=== PATIENT | female | born 1940 | race Caucasian/White ===

== ENCOUNTER 2016-08-28 09:56 | Inpatient (IN) | payer MEDICARE, OTHER ==
[2016-08-28] MEDS ORDERED: NORMAL SALINE 1000 ML 1,000 ML IV PRN (10:21)
[2016-08-28] MEDS ORDERED: HYDROMORPHONE HCL INJ/PF 2 MG/ML AMPULE IV ONE ×2 (10:31→13:31)
--- NOTE | 2016-08-28 10:45 | ER Document Report ---
ED General - General Chief Complaint: Neck and Upper Back Pain Stated Complaint: BACK PAIN Mode of Arrival: Medic Information source: Patient Notes: 75-year-old female history of esophageal cancer which was recently evaluated with biopsies and noted to have been in remission presents with complaints of neck pain. Patient states in fact that his generalized body pain, she notes that she was diagnosed with a compression fracture just yesterday in the lumbar region. pt notes the pain is not ocntrolled with her oxycodone. pt denies any fevers or chills, denies any difficutly ambulating. pt notes it hurts to move because of her back but is able ot move her legs iwth no neuro deficits TRAVEL OUTSIDE OF THE [place] IN LAST 30 DAYS: No - HPI Onset: Other - 2 week duration Onset/Duration: Persistent Quality of pain: Achy Severity: Mild Pain Level: 2 Associated symptoms: Other Exacerbated by: Movement Relieved by: Denies Similar symptoms previously: Yes Recently seen / treated by doctor: Yes - pt notes she has seen multiple physicians regarding her back pain - Related Data Allergies/Adverse Reactions: Penicillins Allergy (Unknown, Verified 08/29/14 06:00) Past Medical History - Social History Smoking Status: Never Smoker Cigarette use (# per day): No Chew tobacco use (# tins/day): No Smoking Education Provided: No Family History: Reviewed & Not Pertinent - Past Medical History Cardiac Medical History: Reports: Hx Hypercholesterolemia, Hx Hypertension Denies: Hx Coronary Artery Disease Pulmonary Medical History: Denies: Hx Asthma Endocrine Medical History: Reports: Hx Hypothyroidism. 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 Denies recent illness. EENT: Denies eye, ear, throat, or mouth pain or symptoms. Denies nasal or sinus congestion or discharge. Denies throat, tongue, or mouth swelling or difficulty swallowing. CARDIOVASCULAR: Denies chest pain. Denies palpitations or racing or irregular heart beat. Denies ankle edema. RESPIRATORY: Denies cough, cold, or chest congestion. Denies shortness of breath, difficulty breathing, or wheezing. GASTROINTESTINAL: Denies abdominal pain or distention. Denies nausea, vomiting , or diarrhea. Denies blood in vomitus, stools, or per rectum. Denies black, tarry stools. Denies constipation. admits ot decreased food due to recent biopsy but drinking fluids with no difficulty GENITOURINARY: Denies difficulty urinating, painful urination, burning, frequency, blood in urine, or discharge. FEMALE GENITOURINARY: Denies vaginal bleeding, heavy or abnormal periods, irregular periods. Denies vaginal discharge or odor. MUSCULOSKELETAL: admits ot neck stiffness since yesterday after moving wrong, admits ot low back pain of 2-3 week duration SKIN: Denies rash, lesions or sores. HEMATOLOGIC : Denies easy bruising or bleeding. LYMPHATIC: Denies swollen, enlarged glands. NEUROLOGICAL: Denies confusion or altered mental status. Denies passing out or loss of consciousness. Denies dizziness or lightheadedness. Denies headache. Denies weakness or paralysis or loss of use of either side. Denies problems with gait or speech. Denies sensory loss, numbness, or tingling. Denies seizures. PSYCHIATRIC: Denies anxiety or stress. Denies depression, suicidal ideation, or homicidal ideation. ALL OTHER SYSTEMS REVIEWED AND NEGATIVE. Dictation was performed using [employer] voice recognition software PHYSICAL EXAMINATION: GENERAL: Well-appearing, well-nourished and in no acute distress. HEAD: Atraumatic, normocephalic. EYES: Pupils equal round and reactive to light, extraocular movements intact, conjunctiva are normal. ENT: Nares patent, oropharynx clear without exudates. Moist mucous membranes. NECK: Normal range of motion, supple without lymphadenopathy LUNGS: Breath sounds clear to auscultation bilaterally and equal. No wheezes rales or rhonchi. HEART: Regular rate and rhythm without murmurs ABDOMEN: Soft, nontender, nondistended abdomen. No guarding, no rebound. No masses appreciated. Female : deferred Musculoskeletal: Normal range of motion, no pitting or edema. No cyanosis. NEUROLOGICAL: Cranial nerves grossly intact. Normal speech, normal gait. Normal sensory, motor exams PSYCH: Normal mood, normal affect. SKIN: Warm, Dry, normal turgor, no rashes or lesions noted. Physical Exam - Vital signs Vitals: Temp Pulse Resp BP Pulse Ox 99.3 F 96 20 137/66 H 96 02/03/17 10:05 08/28/16 10:05 08/28/16 10:05 08/28/16 10:05 08/28/16 10:05 Course - Re-evaluation Re-evalutation: 08/28/16 10:45 Patient will be given pain control sent for CT of the neck as well as laboratory I have very low suspicion for any life-threatening issues, I believe the patient's symptoms may be secondary to pain control as this is her main concern 08/28/16 10:48 08/28/16 10:49 MRI notes L1 superior endplate compression , no spinal cord involvment there is a consult for kyphoplasty 08/28/16 14:59 pt given 2 doses of dilaudid valium and patient is still unable to ambulate secondary to pain i will admit for her pain control and decreased po intake - Vital Signs Vital signs: Temp Pulse Resp BP Pulse Ox 98.5 F 82 18 132/75 H 95 08/28/16 13:25 08/28/16 13:25 08/28/16 13:25 08/28/16 13:25 08/28/16 13:25 - Laboratory Result Diagrams: 08/28/16 10:43 08/28/16 10:43 Laboratory results interpreted by me: 08/28/16 08/28/16 08/28/16 10:43 10:43 14:22 Seg Neutrophils % 81.7 H Lymphocytes % 5.7 L Absolute Lymphocytes 0.3 L Sodium 136.5 L Est GFR (Non-Af Amer) 59 L Urine Ketones 20 H Ur Leukocyte Esterase MODERATE H - Diagnostic Test Radiology reviewed: Image reviewed, Reports reviewed Discharge - Discharge Clinical Impression: Weakness Compression fracture of first lumbar vertebra Qualifiers: Encounter type: initial encounter Fracture type: closed Qualified Code(s): S32.010A - Wedge compression fracture of first lumbar vertebra, initial encounter for closed fracture Condition: Stable Disposition: ADMITTED OBSERVATION Admitting Provider: Hospitalist Unit Admitted: Medical Floor
[2016-08-28 11:09] LABS: ABSOLUTE EOSINOPHILS # (AUTO) 0.1 10^3/uL (0.0-0.6); ABSOLUTE LYMPHOCYTES (AUTO) 0.3 10^3/uL (0.5-4.7); ABSOLUTE MONOCYTES (AUTO) 0.7 10^3/uL (0.1-1.4); BASOPHILS % (AUTO) 0.6 % (0-2); EOSINOPHILS % (AUTO) 1.4 % (0-6); HEMATOCRIT 38.5 % (36.0-47.0); HEMOGLOBIN 13.1 g/dL (12.0-15.5); HGB HCT DIFFERENCE 0.8; LYMPHOCYTES % (AUTO) 5.7 % (13-45); MEAN CORPUSCULAR HEMOGLOBIN 32.2 pg (27.0-33.4); MEAN CORPUSCULAR HGB CONC 34.1 g/dL (32.0-36.0); MEAN CORPUSCULAR VOLUME 95 fl (80-97); MONOCYTES % (AUTO) 10.6 % (3-13); RED BLOOD COUNT 4.08 10^6/uL (3.72-5.28); RED CELL DISTRIBUTION WIDTH 13.9 % (11.5-14.0); SEGMENTED NEUTROPHILS % (AUTO) 81.7 % (42-78); WHITE BLOOD COUNT 6.2 10^3/uL (4.0-10.5)
[2016-08-28 11:22] LABS: PROTHROMBIN TIME 14.8 SEC (11.4-15.4)
[2016-08-28 11:26] LABS: ALANINE AMINOTRANSFERASE 24 U/L (9-52); ALBUMIN 3.7 g/dL (3.5-5.0); ALKALINE PHOSPHATASE 118 U/L (38-126); ANION GAP 13 (5-19); ASPARTATE AMINO TRANSFERASE 21 U/L (14-36); BILIRUBIN,TOTAL 1.2 mg/dL (0.2-1.3); BLOOD UREA NITROGEN 19 mg/dL (7-20); CALCIUM 9.3 mg/dL (8.4-10.2); CARBON DIOXIDE 26 mmol/L (22-30); CHLORIDE 98 mmol/L (98-107); CREATININE RESULT 0.92 mg/dL (0.52-1.25); GLUCOSE 88 mg/dL (75-110); POTASSIUM 4.4 mmol/L (3.6-5.0); SODIUM 136.5 mmol/L (137-145); TOTAL PROTEIN 7.1 g/dL (6.3-8.2)
[2016-08-28] MEDS ORDERED: DIAZEPAM INJ 10 MG/2 ML DISP.SYRIN IV ONE (13:31)
[2016-08-28 14:51] LABS: APPEARANCE,URINE CLEAR; BILIRUBIN,URINE NEGATIVE (NEGATIVE); GLUCOSE, URINE NEGATIVE (NEGATIVE); KETONES,URINE 20 mg/dL (NEGATIVE); LEUKOCYTE ESTERASE,URINE MODERATE (NEGATIVE); NITRITE,URINE NEGATIVE (NEGATIVE); PROTEIN,URINE NEGATIVE (NEGATIVE); URINE SPECIFIC GRAVITY 1.011; UROBILINOGEN,URINE NEGATIVE mg/dL (<2.0)
--- NOTE | 2016-08-28 16:04 | EKG REPORT ---
SEVERITY:- BORDERLINE ECG - SINUS RHYTHM PROBABLE LEFT ATRIAL ABNORMALITY : Confirmed by: Shant Allen 28-Aug-2016 16:03:29
--- NOTE | 2016-08-28 17:04 | PDOC H&P ---
History of Present Illness Admission Date/PCP: 08/28/16 16:16 History of Present Illness: MAGDIEL HENDRICKS is a 75 year old female history of esophageal cancer which was recently evaluated with biopsies and noted to have been in remission presents with complaints of neck pain. Patient states in fact that his generalized body pain, she notes that she was diagnosed with a compression fracture just yesterday in the lumbar region. pt notes the pain is not controlled with her oxycodone. pt denies any fevers or chills, denies any difficutly ambulating. pt notes it hurts to move because of her back but is able to move her legs with no neuro deficits Patient states she initially injured her back in July while pulling on a [place] tree The pain was tolerable but became unbearable in the last 3 weeks Patient has been more or less bedridden for the past 3 weeks Today she could not ambulate An MRI of the LS spine done today in an outpatient facility showed a compression fracture of L1 Was sent by Dr. 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 Past Surgical History Past Surgical History: Reports: Other - Liver transplant Social History Smoking Status: Never Smoker Frequency of Alcohol Use: Social - Advance Directive Resuscitation Status: Do Not Resuscitate Surrogate healthcare decision maker:: Valentine Ann Family History Family History: None Parental Family History Reviewed: Yes Children Family History Reviewed: Yes Sibling(s) Family History Reviewed.: Yes Medication/Allergy Allergies/Adverse Reactions: Penicillins Allergy (Unknown, Verified 08/29/14 06:00) Review of Systems Constitutional: PRESENT: anorexia, weakness, weight loss. ABSENT: chills, fever (s), headache(s), weight gain Eyes: ABSENT: visual disturbances Ears: ABSENT: hearing changes Nose, Mouth, and Throat: PRESENT: mouth pain Cardiovascular: ABSENT: chest pain, dyspnea on exertion, edema, orthropnea, palpitations Respiratory: ABSENT: cough, hemoptysis Gastrointestinal: ABSENT: abdominal pain, constipation, diarrhea, hematemesis, hematochezia, nausea, vomiting Genitourinary: ABSENT: dysuria, hematuria Musculoskeletal: PRESENT: as per HPI, back pain, other - Severe pain in upper extremities shoulders and thighs Severe weakness of the larger joints. ABSENT: joint swelling Integumentary: ABSENT: rash, wounds Neurological: ABSENT: abnormal gait, abnormal speech, confusion, dizziness, focal weakness, syncope Psychiatric: ABSENT: anxiety, depression, homidical ideation, suicidal ideation Endocrine: ABSENT: cold intolerance, heat intolerance, polydipsia, polyuria Hematologic/Lymphatic: ABSENT: easy bleeding, easy bruising Physical Exam Vital Signs: Temp Pulse Resp BP Pulse Ox 98.5 F 82 18 132/75 H 95 08/28/16 13:25 08/28/16 13:25 08/28/16 13:25 08/28/16 13:25 08/28/16 13:25 General appearance: PRESENT: no acute distress - I, cooperative, thin, other - Appears chronically ill Head exam: PRESENT: atraumatic, normocephalic Eye exam: PRESENT: conjunctiva pink, EOMI, PERRLA. ABSENT: scleral icterus Respiratory exam: PRESENT: clear to auscultation rajni. ABSENT: rales, rhonchi, wheezes Cardiovascular exam: PRESENT: RRR. ABSENT: diastolic murmur, rubs, systolic murmur Pulses: PRESENT: normal dorsalis pedis pul GI/Abdominal exam: PRESENT: normal bowel sounds, soft. ABSENT: distended, guarding, mass, organolmegaly, rebound, tenderness Rectal exam: PRESENT: deferred Extremities exam: PRESENT: full ROM. ABSENT: calf tenderness, clubbing, pedal edema Musculoskeletal exam: PRESENT: normal inspection, other - Severe back pain Neurological exam: PRESENT: alert, awake, oriented to person, oriented to place , oriented to time, oriented to situation, CN II-XII grossly intact. ABSENT: motor sensory deficit Psychiatric exam: PRESENT: appropriate affect, normal mood. ABSENT: homicidal ideation, suicidal ideation Skin exam: PRESENT: dry, intact, warm. ABSENT: cyanosis, rash Results Laboratory Results: 08/28/16 10:43 08/28/16 10:43 MCV 95 fl (80-97) 08/28/16 10:43 MCH 32.2 pg (27.0-33.4) 08/28/16 10:43 MCHC 34.1 g/dL (32.0-36.0) 08/28/16 10:43 RDW 13.9 % (11.5-14.0) 08/28/16 10:43 Seg Neutrophils % 81.7 % (42-78) H 08/28/16 10:43 Lymphocytes % 5.7 % (13-45) L 08/28/16 10:43 Monocytes % 10.6 % (3-13) 08/28/16 10:43 Eosinophils % 1.4 % (0-6) 08/28/16 10:43 Basophils % 0.6 % (0-2) 08/28/16 10:43 Absolute Neutrophils 5.0 10^3/uL (1.7-8.2) 08/28/16 10:43 Absolute Lymphocytes 0.3 10^3/uL (0.5-4.7) L 08/28/16 10:43 Absolute Monocytes 0.7 10^3/uL (0.1-1.4) 08/28/16 10:43 Absolute Eosinophils 0.1 10^3/uL (0.0-0.6) 08/28/16 10:43 Absolute Basophils 0.0 10^3/uL (0.0-0.2) 08/28/16 10:43 Chloride 98 mmol/L (98-107) 08/28/16 10:43 Carbon Dioxide 26 mmol/L (22-30) 08/28/16 10:43 Anion Gap 13 (5-19) 08/28/16 10:43 Est GFR ( Amer) > 60 (>60) 08/28/16 10:43 Est GFR (Non-Af Amer) 59 (>60) L 08/28/16 10:43 Glucose 88 mg/dL (75-110) 08/28/16 10:43 Calcium 9.3 mg/dL (8.4-10.2) 08/28/16 10:43 Total Bilirubin 1.2 mg/dL (0.2-1.3) 08/28/16 10:43 AST 21 U/L (14-36) 08/28/16 10:43 ALT 24 U/L (9-52) 08/28/16 10:43 Alkaline Phosphatase 118 U/L (38-126) 08/28/16 10:43 Total Protein 7.1 g/dL (6.3-8.2) 08/28/16 10:43 Albumin 3.7 g/dL (3.5-5.0) 08/28/16 10:43 Urine Color YELLOW 08/28/16 14:22 Urine Appearance CLEAR 08/28/16 14:22 Urine pH 5.0 (5.0-9.0) 08/28/16 14:22 Ur Specific [place] 1.011 08/28/16 14:22 Urine Protein NEGATIVE mg/dL (NEGATIVE) 08/28/16 14:22 Urine Glucose (UA) NEGATIVE mg/dL (NEGATIVE) 08/28/16 14:22 Urine Ketones 20 mg/dL (NEGATIVE) H 08/28/16 14:22 Urine Blood NEGATIVE (NEGATIVE) 08/28/16 14:22 Urine Nitrite NEGATIVE (NEGATIVE) 08/28/16 14:22 Ur Leukocyte Esterase MODERATE (NEGATIVE) H 08/28/16 14:22 Urine WBC (Auto) 2 /HPF 08/28/16 14:22 Urine RBC (Auto) 1 /HPF 08/28/16 14:22 Impressions: Cervical Spine CT 08/28/16 10:40 IMPRESSION: Diffuse multilevel degenerative changes with multilevel foraminal narrowing Left-sided pleural effusions seen at the bottom edge of the field of view Assessment & Plan - Diagnosis (1) Unable to ambulate Is this a current diagnosis for this admission?: YesPlan: She will be evaluated by physical therapy in a.m. after optimization of medications (2) Intractable low back pain Is this a current diagnosis for this admission?: YesPlan: Secondary to compression fracture of L1 May be a candidate for vertebroplasty (3) Compression fracture of L1 lumbar vertebra Qualifiers: Encounter type: initial encounter Fracture type: closed Qualified Code(s): S32.010A - Wedge compression fracture of first lumbar vertebra, initial encounter for closed fracture Is this a current diagnosis for this admission?: YesPlan: MRI was performed in an outpatient facility Called Dr. Hamm ; Report of the MRI to be faxed (4) Weakness Is this a current diagnosis for this admission?: Yes - Time Time Spent with patient: Patient was admitted for observation overnight to medical floor Time Spent: 50 to 70 Minutes
[2016-08-28] MEDS: NORMAL SALINE 1000 ML 1,000 ML IV PRN (17:16)
[2016-08-28] MEDS: HYDROMORPHONE HCL INJ/PF 2 MG/ML AMPULE IV PRN ×2 (17:27→22:05)
[2016-08-29] MEDS: NORMAL SALINE 1000 ML 1,000 ML IV PRN (06:01)
[2016-08-29] MEDS: HYDROMORPHONE HCL INJ/PF 2 MG/ML AMPULE IV PRN ×4 (06:19→23:52)
[2016-08-29] MEDS: ENOXAPARIN SODIUM INJ 40 MG/0.4 ML DISP.SYRIN SUBCUT SCH (08:08)
--- NOTE | 2016-08-29 15:44 | PDOC PROGRESS REPORT ---
Subjective Progress Note for:: 08/29/16 Subjective:: Patient is still complaining of intractable pain in her back She is unable to sit She also complains of dysuria and urinary incontinence She's had constipation now for just 3-4 days Physical Exam Vital Signs: Temp Pulse Resp BP Pulse Ox 98.5 F 89 16 128/69 H 97 08/29/16 08:05 08/29/16 08:05 08/29/16 08:05 08/29/16 08:05 08/29/16 08:05 Intake & Output 08/28/16 08/29/16 08/30/16 00:59 00:59 00:59 Intake Total 200 1287 Balance 200 1287 Weight 57.4 kg 57.4 kg General appearance: PRESENT: mild distress Head exam: PRESENT: atraumatic, normocephalic Eye exam: PRESENT: conjunctiva pink, EOMI, PERRLA. ABSENT: scleral icterus Neck exam: ABSENT: carotid bruit, JVD, lymphadenopathy, thyromegaly Respiratory exam: PRESENT: clear to auscultation rajni. ABSENT: rales, rhonchi, wheezes Cardiovascular exam: PRESENT: bradycardia Pulses: PRESENT: normal dorsalis pedis pul GI/Abdominal exam: PRESENT: normal bowel sounds, soft, tenderness - Suprapubic area. ABSENT: distended, guarding, mass, organolmegaly, rebound Rectal exam: PRESENT: deferred Extremities exam: PRESENT: full ROM. ABSENT: calf tenderness, clubbing, pedal edema Neurological exam: PRESENT: alert, awake, oriented to person, oriented to place , oriented to time, oriented to situation, CN II-XII grossly intact. ABSENT: motor sensory deficit Results Laboratory Results: 08/28/16 14:22 Urine Appearance CLEAR Ur Leukocyte Esterase MODERATE H Urine WBC (Auto) 2 Urine RBC (Auto) 1 08/28/16 14:22 Urine Culture - Final Clean Catch Midstream Mixed Urogenital [place] Impressions: Cervical Spine CT 08/28/16 10:40 IMPRESSION: Diffuse multilevel degenerative changes with multilevel foraminal narrowing Left-sided pleural effusions seen at the bottom edge of the field of view Assessment & Plan - Diagnosis (1) Unable to ambulate Is this a current diagnosis for this admission?: YesPlan: pain is still intractable continue dilaudid iV attempt PT eval on wednesday (2) Intractable low back pain Is this a current diagnosis for this admission?: Yes (3) Compression fracture of L1 lumbar vertebra Qualifiers: Encounter type: initial encounter Fracture type: closed Qualified Code(s): S32.010A - Wedge compression fracture of first lumbar vertebra, initial encounter for closed fracture Is this a current diagnosis for this admission?: YesPlan: Patient may be a candidate for vertebroplasty will consult Dr Oneal on Wednesday (4) Weakness Is this a current diagnosis for this admission?: Yes (5) Dysuria Is this a current diagnosis for this admission?: YesPlan: culture urine was mixed [place] but patient is symptomatic will treat her with 3 days Cipro 500 mg bid and Pyridium 200 mg q8 - Time Time Spent with patient: 25-34 minutes
[2016-08-29] MEDS ORDERED: PHENAZOPYRIDINE HCL 200 MG TABLET PO SCH ×2 (16:00→22:00)
[2016-08-29] MEDS ORDERED: PHENAZOPYRIDINE HCL 100 MG TABLET PO ONE (16:30)
[2016-08-29] MEDS ORDERED: PHENAZOPYRIDINE HCL 200 MG TABLET PO ONE (16:30)
[2016-08-29] MEDS: SENNOSIDES/DOCUSATE 8.6-50 MG 1 EACH TABLET PO SCH (17:19)
[2016-08-29] MEDS ORDERED: CIPROFLOXACIN HCL 500 MG TABLET PO SCH (18:00)
[2016-08-29] MEDS ORDERED: DIAZEPAM 5 MG TABLET PO PRN (18:14)
[2016-08-29] MEDS ORDERED: ONDANSETRON HCL INJ/PF 4 MG/2 ML SDV IV PRN (18:14)
[2016-08-29] MEDS ORDERED: TACROLIMUS ANHYDROUS 1 MG CAPSULE PO SCH (22:00)
[2016-08-29] MEDS ORDERED: PHENAZOPYRIDINE HCL 100 MG TABLET PO SCH (22:00)
[2016-08-29] MEDS ORDERED: ACYCLOVIR SODIUM INJ/PF 500 MG/10 ML SDV IV ONE (22:04)
[2016-08-29] MEDS: ATORVASTATIN CALCIUM 10 MG TABLET PO SCH (22:53)
[2016-08-29] MEDS: LACTULOSE SYRUP 20 GM/30 ML UDCUP PO SCH (22:53)
[2016-08-29] MEDS: ACYCLOVIR SODIUM 500 MG in NORMAL SALINE 100 ML IV SCH (22:53)
[2016-08-29] MEDS: TACROLIMUS ANHYDROUS 1 MG CAPSULE PO SCH (22:55)
[2016-08-30] MEDS: ACYCLOVIR SODIUM 500 MG in NORMAL SALINE 100 ML IV SCH ×3 (05:18→23:05)
[2016-08-30] MEDS ORDERED: LEVOTHYROXINE SODIUM 0.1 MG TABLET PO SCH (06:00)
[2016-08-30 06:44] LABS: BLOOD UREA NITROGEN 15 mg/dL (7-20); CALCIUM 8.6 mg/dL (8.4-10.2); CARBON DIOXIDE 26 mmol/L (22-30); CREATININE RESULT 0.58 mg/dL (0.52-1.25); GLUCOSE 90 mg/dL (75-110); POTASSIUM 3.8 mmol/L (3.6-5.0); SODIUM 140.1 mmol/L (137-145)
[2016-08-30 07:07] LABS: ANION GAP 9 (5-19); CHLORIDE 105 mmol/L (98-107)
[2016-08-30] MEDS: ENOXAPARIN SODIUM INJ 40 MG/0.4 ML DISP.SYRIN SUBCUT SCH (08:50)
[2016-08-30] MEDS: HYDROMORPHONE HCL INJ/PF 2 MG/ML AMPULE IV PRN ×3 (09:01→21:51)
[2016-08-30] MEDS: LACTULOSE SYRUP 20 GM/30 ML UDCUP PO SCH (09:02)
[2016-08-30] MEDS: CIPROFLOXACIN 400 MG/D5W RTU 400 MG/200 ML RTUPB IV SCH ×2 (09:02→21:44)
[2016-08-30] MEDS: AMLODIPINE BESYLATE 5 MG TABLET PO SCH (09:03)
[2016-08-30] MEDS: SENNOSIDES/DOCUSATE 8.6-50 MG 1 EACH TABLET PO SCH (09:03)
[2016-08-30] MEDS: TACROLIMUS ANHYDROUS 1 MG CAPSULE PO SCH ×2 (09:04→22:43)
[2016-08-30] MEDS ORDERED: ERGOCALCIFEROL (VITAMIN D2) 50000 UNIT (1.25 MG) CAPSULE PO SCH ×2 (10:00→18:14)
[2016-08-30] MEDS ORDERED: ATORVASTATIN PO SCH (10:00)
[2016-08-30] MEDS ORDERED: AMLODIPINE PO SCH (10:00)
--- NOTE | 2016-08-30 15:13 | PDOC PROGRESS REPORT ---
Subjective Progress Note for:: 08/30/16 Subjective:: Patient is still in pain ; the pain is in the lower back and also the neck Patient is unable to sit to stand Yesterday she was in acute urinary retention and a Aleman catheter drained 900 mL urine Patient is being treated empirically for UTI as she had significant dysuria She is more comfortable today, still complaining of constipation The back pain is barely improved with intermittent doses of IV Dilaudid. Acyclovir IV was started as patient cannot tolerate large pills Patient had been diagnosed of herpetic esophagitis prior to admission and had been described prescribed acyclovir tablets Physical Exam Vital Signs: Temp Pulse Resp BP Pulse Ox 97.4 F 90 16 135/74 H 96 08/30/16 12:00 08/30/16 12:00 08/30/16 12:00 08/30/16 12:00 08/30/16 12:00 Intake & Output 08/29/16 08/30/16 08/31/16 00:59 00:59 00:59 Intake Total 200 2589 909 Output Total 300 Balance 200 2589 609 Weight 57.4 kg 59.5 kg General appearance: PRESENT: mild distress, thin, other - Looks acute and chronically ill Head exam: PRESENT: atraumatic, normocephalic Eye exam: PRESENT: conjunctiva pale, EOMI, PERRLA. ABSENT: scleral icterus Respiratory exam: PRESENT: clear to auscultation rajni. ABSENT: rales, rhonchi, wheezes Cardiovascular exam: PRESENT: RRR. ABSENT: diastolic murmur, rubs, systolic murmur Vascular exam: PRESENT: normal capillary refill GI/Abdominal exam: PRESENT: normal bowel sounds, soft. ABSENT: distended, guarding, mass, organolmegaly, rebound, tenderness Extremities exam: PRESENT: full ROM. ABSENT: calf tenderness, clubbing, pedal edema Musculoskeletal exam: PRESENT: other - Severe pain in the low back on palpation Neurological exam: PRESENT: alert, awake, oriented to person, oriented to place , oriented to time, oriented to situation, CN II-XII grossly intact. ABSENT: motor sensory deficit Results Laboratory Results: 08/30/16 05:41 08/30/16 05:41 Sodium 140.1 Potassium 3.8 Chloride 105 Carbon Dioxide 26 Anion Gap 9 BUN 15 Creatinine 0.58 Est GFR ( Amer) > 60 Est GFR (Non-Af Amer) > 60 Glucose 90 Calcium 8.6 08/28/16 14:22 Ur Leukocyte Esterase MODERATE H Urine WBC (Auto) 2 Urine RBC (Auto) 1 08/28/16 14:22 Urine Culture - Final Clean Catch Midstream Mixed Urogenital [place] 08/28/16 13:35 Blood Culture - Preliminary Blood NO GROWTH AFTER 48 HOURS 08/28/16 10:43 Blood Culture - Preliminary Blood NO GROWTH AFTER 48 HOURS Impressions: Cervical Spine CT 08/28/16 10:40 IMPRESSION: Diffuse multilevel degenerative changes with multilevel foraminal narrowing Left-sided pleural effusions seen at the bottom edge of the field of view Assessment & Plan - Diagnosis (1) Unable to ambulate Is this a current diagnosis for this admission?: YesPlan: Patient is unable to sit or stand on her own She was evaluated by physical therapy as below "Patient presents as agreeable to treatment, medicated prior to treatemnt with 2 /5 pain at rest, oriented x 3 with decrease in overall strength and endurance as well as decrease in functional transfer (patient instructed in safe log roll transfers) and gait abilities with patient ambulating 2 x 6 side steps with front wheeled walker and min/mod assist of 2 with frequent left knee buckling with verbal cues given to stand upright, to increase step height/length BLE, to push down onto walker with BUE and for safety awareness. Weight shifting and trunk strengthening exercises were performed in sitting with min/mod assist of 1. She was positioned supine post treatment with all needs at her side. All questions were answered. Will continue to follow for energy conservation technique education, strengthening exercises, transfer training and gait training activities to achieve the above mentioned goals to assist patient in returning to highest functional mobility status. Recommend SNF rehab or 24 hour supervision at home with home health PT upon D/C. " We do believe that vertebroplasty will improve her pain Patient is extremely weak; she certainly would benefit initiate from inpatient rehabilitation (2) Intractable low back pain Is this a current diagnosis for this admission?: YesPlan: Secondary to compression fracture of L1 Continue IV Dilaudid Patient will be evaluated by Dr. Bolton for vertebroplasty in a.m. (3) Compression fracture of L1 lumbar vertebra Qualifiers: Encounter type: initial encounter Fracture type: closed Qualified Code(s): S32.010A - Wedge compression fracture of first lumbar vertebra, initial encounter for closed fracture Is this a current diagnosis for this admission?: Yes (4) Weakness Is this a current diagnosis for this admission?: Yes (5) Dysuria Is this a current diagnosis for this admission?: Yes (6) Esophagitis Is this a current diagnosis for this admission?: YesPlan: Continue IV acyclovir (7) Urinary retention Is this a current diagnosis for this admission?: YesPlan: Urinary retention likely secondary to high-dose opiates given; secondary to constipation We will reevaluate in a few days after vertebroplasty (8) Constipation Qualifiers: Constipation type: unspecified constipation type Qualified Code(s): K59.00 - Constipation, unspecified Is this a current diagnosis for this admission?: YesPlan: Treat with Dulcolax tablets and Miralax - Time Time Spent with patient: 25-34 minutes
[2016-08-30] MEDS ORDERED: BISACODYL 5 MG TABEC PO ONE (16:00)
[2016-08-30] MEDS: POLYETHYLENE GLYCOL 3350 POWDER 17 GM/1 PACKET PO SCH (19:05)
[2016-08-30] MEDS: ATORVASTATIN CALCIUM 10 MG TABLET PO SCH (21:46)
[2016-08-31] MEDS: HYDROMORPHONE HCL INJ/PF 2 MG/ML AMPULE IV PRN ×6 (02:04→23:56)
--- NOTE | 2016-08-31 04:18 | CONSULTATION REPORT E ---
Consultation Report NAME: MAGDIEL HENDRICKS : 1940 AGE: 75Y DATE: 08/31/2016 433 A TO: CHERELLE MICHELLE FROM: Requesting Physician CHIEF COMPLAINT: Chronic back. HISTORY OF PRESENT ILLNESS: The patient is a 75-year-old female, who we were consulted to evaluated for chronic back pain. She does state that she does have some ongoing neck pain, but her back pain is significantly worse. She first noted the pain after the holiday, approximately 3-4 weeks ago, when she was taking down a Razia tree. She states she took off the first half of the Razia tree and when she went to take off the second half of the Razia tree, she had severe pain that shot across her back into her gluteus bilaterally. She did not think much of it at that point. The next morning, she said it was very difficult for her to move. She notes that she was able to get out of the bed, but had to go very, very slowly and had to hold onto various furniture in order to make it to the restroom to relieve herself that morning. Denied any loss of bowel/bladder control, numbness, paresthesias at that time. States that as the day went on, the pain had improved, but recently the pain has become significantly worse. Notes that she has been caring for her 80-year-old , who recently has had hip replacement and currently in inpatient rehabilitation. She states that he is about 190 pounds and she has been helping to try to transfer him, as well as pushing him in a wheelchair for certain modalities. I would also like to note, the patient has a history of esophageal cancer in which she reports she has undergone chemotherapy and radiation therapy. She states the last treatment was around March 2016. She continues to follow with Oncology. She also has recently had a biopsy as well. During the period of progression of her pain, she had been seen at [facility] twice, as well as by her primary care. Reports that after her second visit with her primary care and after 2 treatments of oral steroid therapy, MRI was ordered, in which she states she completed on 08/14/2016 at [facility]. She states she was also informed that she had a compression fracture of the L1 vertebra by Dr. Espinoza. She has not been treated for the compression fracture. She was seen in the emergency room and was subsequently transferred to the hospitalist for further workup. The patient states that her pain is the lowest when she is sitting still, usually lying in a reclined position. The pain is aggravated by any type of movement, whether it is moving her legs or attempting to sit up in the bed or rotate in the bed. Definitely much worse when trying to sit on the side of the bed, then trying to stand up. Notes that she has lost her balance a couple of times due to the increased pain when trying to stand. Management of pain has been with the use of oxycodone that she has had from previous treatment of her chemotherapy pain. Has not been prescribed any type of narcotic medication for the acute pain that she presents with today prior to admission. Did report that the oxycodone 5 mg 1-2 tablets was effective for helping to cut pain until it progressed to the point where it was very difficult for her to even stand straight. She has been evaluated by PCP in office. Once again, she denies any lower extremity radiculopathy, loss of bowel or bladder control otherwise. Current dosing of pain medication in hospital is inclusive of 5 mg of oxycodone immediate-release 1 tablet every 6 hours, as well as Dilaudid 1 mg every 4 hours as needed for pain. PAST MEDICAL HISTORY: Patient's past medical history is inclusive of: 1. Hyperlipidemia. 2. Hypertension. 3. Esophageal cancer, status post chemotherapy, radiation therapy. 4. 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 5. Denies any asthma or pulmonary complications. 6. Does admit to hypothyroidism, which is being managed with Synthroid. 7. Denies any type of diabetes mellitus type 1 or type 2. PAST SURGICAL HISTORY: Significant for liver transplant. SOCIAL HISTORY: The patient denies any history of smoking, admits to social alcohol consumption. She lives at home with her 80-year-old , who is currently in inpatient rehab. Currently is under DO NOT RESUSCITATE order as well. FAMILY HISTORY: Denies any significant contributory family history at this time. Reviewed family history to include children, siblings, as well as parental family history. MEDICATIONS: Please see medication list. MEDICATION ALLERGIES: The patient does verbalize allergy to PENICILLIN. REVIEW OF SYSTEMS: CONSTITUTIONAL: The patient does report weight loss, weakness. Denies any nausea, vomiting, fevers, chills, headaches at this time. EYES, EARS, NOSE, THROAT: Denies any changes in visual capacity, denies any difficulty with hearing or ringing of the ears at this point in time. Patient does complain of mouth pain and at times difficulty with swallowing large objects or large pills. CARDIOVASCULAR: Denies any chest pain, dyspnea, orthopnea, palpitations or swelling. RESPIRATORY: Denies any coughing, hemoptysis, shortness of breath, wheezing at this point. GASTROINTESTINAL: Does complain of constipation, but reports relief with current regimen of stool softeners and laxatives. GENITOURINARY: Does note that she did have some minor dysuria, but currently she is catheterized. Denies any pain, dysuria or hematuria at this point. MUSCULOSKELETAL: Complains of neck and back pain, with the back pain being severe. Denies any radiculopathy of the upper extremities, lower extremities bilaterally at this time. Does report she is having weakness in the lower extremities, difficulty with standing as well. Denies any joint swelling, changes or erythema. INTEGUMENTARY: Denies any rashes, lesions. NEUROLOGIC: Denies any loss of focus, dizziness, confusion, changes in her speech. ENDOCRINE: Denies any cold or heat intolerance, polydipsia or polyphagia. PSYCHIATRIC: Denies any homicidal or suicidal ideation, anxiety during exam today. PHYSICAL EXAMINATION: VITAL SIGNS: Temperature 97.4, pulse 90, respirations 16, blood pressure 135/74, pulse oximetry 96 on room air. GENERAL APPEARANCE: Patient is lying comfortably in bed, no acute distress noted at this time. Does note increase in pain with movement of lower extremities, as well as trying to readjust in the bed; otherwise, she is a fairly thin lady, alert and oriented, and seems to be overall comfortable. HEAD, EYES, EARS, NOSE, THROAT: The patient is normocephalic head with no apparent trauma with eyes being PERRLA, as well as bilateral equal motor movement appears to be intact. Nose appears to be patent bilaterally. Trachea in regards to the throat, appears to be midline. No JVD noted on exam. No thyromegaly or goiter noted on exam. RESPIRATORY: Lungs are clear to auscultation bilaterally. CARDIOVASCULAR: Heart shows regular rate and rhythm. No noted murmur, gallops or rubs with pulses appearing to be normal. Specifically, dorsalis pedis pulse is intact. ABDOMEN: Normal bowel sounds x4. Nontender, nondistended. No guarding noted on exam. NECK: There is some diffuse tenderness on palpation of the trapezius bilaterally. Noted trigger points of the trapezius muscles bilaterally as well. Full range of motion of the neck. No Spurling noted on exam. Mild tenderness to palpation of paravertebral muscles, as well as minor tenderness to palpation around C5, C6, and C7 regions. EXTREMITIES: Full range of motion of the upper extremities noted on exam. Minor tenderness to palpation of the musculature; specifically the biceps, triceps and deltoid regions. The patient states that the pain has significantly improved and seems more like soreness. Lower extremities, she has good strength; however, range of motion limited due to increased pain of the lower back with movement of the lower extremities. Straight leg raise negative; however, noted increased lumbar pain with flexion and extension of the hip and the lower extremity bilaterally. SPINE: Noted significant diffuse tenderness to palpation of the lumbar spine on exam. Noted greater tenderness to palpation around the T12, L1, L2, L3 regions with point tenderness specifically around the T12 to L1 region on exam. No joint deformities, swelling, erythema or ecchymoses noted at the site. The patient unable to stand up due to the increased back pain, does note difficulty with even rolling to lie on side during exam due to the increased back pain. Noted tenderness to palpation of the SI joints bilaterally. No tenderness of the lower extremities noted. NEUROLOGIC: Patient is alert and oriented x3. Cranial nerves grossly intact. Lower extremity reflexes of patella, Achilles reflexes are within normal limits. Strength of the lower extremities noted 4/5 bilaterally due to the increased pain of the lower back with excessive movement of the lower extremities. PSYCHIATRIC: Patient denies any suicidal or homicidal ideation. She has appropriate affect. Mood is normal. She is very cooperative, alert and no noted anxiety during exam today. RADIOLOGICAL STUDIES: The patient has had a CT scan completed on August 28, which revealed diffuse multilevel degenerative changes with multilevel foraminal narrowing with the left pleural effusion seen at the bottom edge of the field of view. ASSESSMENT/PLAN: 1. LOW BACK PAIN SECONDARY TO REPORTED L1 COMPRESSION FRACTURE. At this point we are awaiting the MRI report and imaging for further workup and review. Consideration for possible kyphoplasty/vertebroplasty of the reported L1 compression fracture to be given once we have the report and imaging to review. May give consideration for further imaging to include possible bone scan or CT to confirm findings. As this point we will continue with current treatment plan. Patient is reporting relief with current regimen; however, may need to give consideration to increasing her oxycodone to 10 mg every 6 hours if the pain progresses or becomes worse. If noted continued issue with swallowing due to recent treatment for esophageal cancer, may consider adjustment of the Dilaudid instead to provide 2 mg every 4 hours as needed for pain. We will consider adjustment upon review or if reported worsening of pain prior to next visit. Continue to monitor constipation, especially in the presence of opioid medications. Of note, patient has been evaluated by PCP. I do believe that based on the information I have, she may benefit from vertebroplasty, but as I stated before we will work up and address if necessary. Of note, the patient is on Lovenox. We will need to probably obtain appropriate laboratory testing prior to consideration for vertebroplasty. Of note, the patient is also being treated for recent UTI as well. 2. NECK PAIN. Review of CT report. The patient currently denies any type of neurological deficit. Did not see any on exam at this time. A lot of the pain also seems to be more myofascial in presentation. Patient is reporting that the pain is improving and declines need for further workup, so we will continue to monitor for now. In the future if pain becomes radicular or worsening, may need to give consideration to cervical epidural injection versus cervical medial branch nerve blocks at that time. Also encouraged patient to continue with further workup and direction of hospitalist for management of UTI and other comorbid conditions. Thank you for the opportunity to serve in this patient's care. Please feel free to contact our office with any questions, concerns or worsening of pain. DICTATING PHYSICIAN: CHERELLE MICHELLE [id number] PHY#: [id number] ID: [id number] JOB#: [id number] ACCT: [id number] cc:CHERELLE MICHELLE > [facility]
[2016-08-31] MEDS: ACYCLOVIR SODIUM 500 MG in NORMAL SALINE 100 ML IV SCH ×3 (06:02→22:28)
[2016-08-31] MEDS: ENOXAPARIN SODIUM INJ 40 MG/0.4 ML DISP.SYRIN SUBCUT SCH (08:04)
[2016-08-31] MEDS: BISACODYL 5 MG TABEC PO SCH ×2 (09:24→17:34)
[2016-08-31] MEDS: AMLODIPINE BESYLATE 5 MG TABLET PO SCH (09:25)
[2016-08-31] MEDS: TACROLIMUS ANHYDROUS 1 MG CAPSULE PO SCH ×3 (09:25→22:38)
[2016-08-31] MEDS: CIPROFLOXACIN 400 MG/D5W RTU 400 MG/200 ML RTUPB IV SCH ×2 (09:26→22:30)
[2016-08-31] MEDS: POLYETHYLENE GLYCOL 3350 POWDER 17 GM/1 PACKET PO SCH ×2 (09:33→17:34)
--- NOTE | 2016-08-31 20:41 | PDOC PROGRESS REPORT ---
Subjective Progress Note for:: 08/31/16 Subjective:: Patient is still in pain ; the pain is in the lower back and also the neck In general patient appears more comfortable; no fever no chills Still constipated She is a lot more comfortable since she had the Aleman catheter inserted Physical Exam Vital Signs: Temp Pulse Resp BP Pulse Ox 97.7 F 96 16 100/63 96 08/31/16 16:00 08/31/16 16:00 08/31/16 16:00 08/31/16 16:00 08/31/16 16:00 Intake & Output 08/30/16 08/31/16 09/01/16 00:59 00:59 00:59 Intake Total 1028 1737 Output Total 225 1700 Balance 803 37 Weight 60.3 kg General appearance: PRESENT: mild distress, thin Head exam: PRESENT: atraumatic, normocephalic Eye exam: PRESENT: conjunctiva pink, EOMI, PERRLA. ABSENT: scleral icterus Ear exam: PRESENT: normal external ear exam Mouth exam: PRESENT: moist, tongue midline Neck exam: ABSENT: carotid bruit, JVD, lymphadenopathy, thyromegaly Respiratory exam: PRESENT: clear to auscultation rajni. ABSENT: rales, rhonchi, wheezes Cardiovascular exam: PRESENT: RRR. ABSENT: diastolic murmur, rubs, systolic murmur Pulses: PRESENT: normal dorsalis pedis pul Vascular exam: PRESENT: normal capillary refill GI/Abdominal exam: PRESENT: normal bowel sounds, soft. ABSENT: distended, guarding, mass, organolmegaly, rebound, tenderness Rectal exam: PRESENT: deferred Extremities exam: PRESENT: full ROM. ABSENT: calf tenderness, clubbing, pedal edema Musculoskeletal exam: PRESENT: tenderness - Of low back Neurological exam: PRESENT: alert, awake, oriented to person, oriented to place , oriented to time, oriented to situation, CN II-XII grossly intact. ABSENT: motor sensory deficit Psychiatric exam: PRESENT: appropriate affect, normal mood. ABSENT: homicidal ideation, suicidal ideation Skin exam: PRESENT: dry, intact, warm. ABSENT: cyanosis, rash Results Impressions: Cervical Spine CT 08/28/16 10:40 IMPRESSION: Diffuse multilevel degenerative changes with multilevel foraminal narrowing Left-sided pleural effusions seen at the bottom edge of the field of view Assessment & Plan - Diagnosis (1) Unable to ambulate Is this a current diagnosis for this admission?: YesPlan: patient is extremely debilitated Physical therapy evaluation requested Patient may be beneficial from inpatient short-term rehabilitation (2) Intractable low back pain Is this a current diagnosis for this admission?: Yes (3) Compression fracture of L1 lumbar vertebra Qualifiers: Encounter type: initial encounter Fracture type: closed Qualified Code(s): S32.010A - Wedge compression fracture of first lumbar vertebra, initial encounter for closed fracture Is this a current diagnosis for this admission?: YesPlan: Patient is will be evaluated by Dr. Bolton and Dr. Daniels for vertebroplasty (4) Esophagitis Is this a current diagnosis for this admission?: Yes (5) Weakness Is this a current diagnosis for this admission?: YesPlan: Severe weakness and poor nutrition We will have the dietitian consult and advise (6) Urinary retention Is this a current diagnosis for this admission?: YesPlan: We will leave the Aleman catheter to drain until patient is discharged Urinary retention likely secondary to severe pain, opiates and constipation, (7) Constipation Qualifiers: Constipation type: unspecified constipation type Qualified Code(s): K59.00 - Constipation, unspecified Is this a current diagnosis for this admission?: Yes - Time Time Spent with patient: 25-34 minutes
[2016-08-31] MEDS: ATORVASTATIN CALCIUM 10 MG TABLET PO SCH (22:30)
[2016-09-01] MEDS: ACYCLOVIR SODIUM 500 MG in NORMAL SALINE 100 ML IV SCH ×3 (05:28→21:42)
[2016-09-01] MEDS: HYDROMORPHONE HCL INJ/PF 2 MG/ML AMPULE IV PRN ×5 (05:29→21:42)
[2016-09-01] MEDS: CIPROFLOXACIN 400 MG/D5W RTU 400 MG/200 ML RTUPB IV SCH (09:47)
[2016-09-01] MEDS: ENOXAPARIN SODIUM INJ 40 MG/0.4 ML DISP.SYRIN SUBCUT SCH (09:48)
[2016-09-01] MEDS: AMLODIPINE BESYLATE 5 MG TABLET PO SCH (09:48)
[2016-09-01] MEDS: BISACODYL 5 MG TABEC PO SCH ×2 (09:50→18:43)
[2016-09-01] MEDS: POLYETHYLENE GLYCOL 3350 POWDER 17 GM/1 PACKET PO SCH ×2 (09:50→17:32)
--- NOTE | 2016-09-01 12:28 | PDOC CONSULTATION ---
History of Present Illness Admission Date/PCP: 08/30/16 17:25 History of Present Illness: MAGDIEL HENDRICKS is a 75 year old female Was sent to the hospital on 08/28/16 due to difficulty with ambulation and intractable back pain. Patient states she is having back pain since the holidays. She first noticed it when she was taking down her Razia tree and lifting something heavy at that point she felt a pain in her back. Since then she has been having pain in her back with radiating pain down her lower extremities. Denies fall. Prior to her admission she had been constipated with urinary retention but the constipation has improved. Patient denies saddle anesthesias. Also notices weakness of her bilateral upper extremities which is also somewhat of a new development. Patient denies headache dizziness or loss of consciousness. Pain is 10/10 when she attempts motion specifically of her left leg. An MRI of the LS spine done 08/14/16 in an outpatient facility showed a compression fracture of L1 Past Medical History Cardiac Medical History: Reports: Hyperlipidema, Hypertension Denies: Coronary Artery Disease Pulmonary Medical History: Denies: Asthma Endocrine Medical History: Reports: Hypothyroidism Denies: Diabetes Mellitus Type 1, Diabetes Mellitus Type 2 Malignancy Medical History: Reports: Other - CA of the esophagus status post chemotherapy and radiation therapy GI Medical History: Reports: Cirrhosis - HX OF PRIMARY BILIARY CIRRHOSIS WHICH RESULTED IN LIVER TRANSPLANT Past Surgical History Past Surgical History: Reports: Other - Liver transplant Social History Smoking Status: Former Smoker Frequency of Alcohol Use: Social Hx Recreational Drug Use: No Drugs: None Hx Prescription Drug Abuse: No - Advance Directive Resuscitation Status: Do Not Resuscitate Family History Family History: None Parental Family History Reviewed: No Children Family History Reviewed: No Sibling(s) Family History Reviewed.: No Medication/Allergy Home Medications: Amlodipine/Atorvastatin [Amlodipine-Atorvast 5-10 mg] 1 each PO DAILY 08/28/16 Diazepam [Valium 5 mg Tablet] 5 mg PO HSP PRN 08/28/16 Ergocalciferol (Vitamin D2) [Vitamin D2] 50,000 unit PO VO 08/28/16 Levothyroxine Sodium [Synthroid 0.1 mg Tablet] 0.1 mg PO DAILY 08/28/16 Oxycodone HCl [Oxy-Ir 5 mg Tablet] 5 mg PO Q6HP PRN 08/28/16 Tacrolimus [Prograf] 1 mg PO Q12 08/28/16 Allergies/Adverse Reactions: Penicillins Allergy (Unknown, Verified 08/29/14 06:00) Review of Systems Constitutional: PRESENT: weakness. ABSENT: chills, fever(s), headache(s), weight gain, weight loss Eyes: ABSENT: visual disturbances Ears: ABSENT: hearing changes Cardiovascular: ABSENT: chest pain, dyspnea on exertion, edema, orthropnea, palpitations Respiratory: ABSENT: cough, hemoptysis Gastrointestinal: PRESENT: constipation, heartburn. ABSENT: abdominal pain, diarrhea, hematemesis, hematochezia, nausea, vomiting Genitourinary: PRESENT: difficulty urinating. ABSENT: dysuria, hematuria Musculoskeletal: PRESENT: as per HPI Integumentary: ABSENT: rash, wounds Neurological: PRESENT: abnormal gait, paresthesias, weakness. ABSENT: abnormal speech, confusion, dizziness, syncope Psychiatric: ABSENT: anxiety, depression, homidical ideation, suicidal ideation Endocrine: ABSENT: cold intolerance, heat intolerance, menstrual abnormalities, polydipsia, polyuria Hematologic/Lymphatic: ABSENT: easy bleeding, easy bruising, lymphadenopathy Physical Exam Vital Signs: Temp Pulse Resp BP Pulse Ox 97.9 F 99 16 130/63 H 94 09/01/16 08:14 09/01/16 08:14 09/01/16 08:14 09/01/16 08:14 09/01/16 08:14 Intake & Output 08/31/16 09/01/16 09/02/16 06:59 06:59 06:59 Intake Total 2165 1600 Output Total 1525 800 Balance 640 800 Weight 60.3 kg 60 kg General appearance: PRESENT: no acute distress, well-developed, well-nourished Head exam: PRESENT: atraumatic, normocephalic Eye exam: PRESENT: conjunctiva pink, EOMI, PERRLA. ABSENT: scleral icterus Ear exam: PRESENT: normal external ear exam Mouth exam: PRESENT: moist, tongue midline Neck exam: PRESENT: full ROM. ABSENT: carotid bruit, JVD, lymphadenopathy, thyromegaly Respiratory exam: PRESENT: unlabored Cardiovascular exam: PRESENT: RRR. ABSENT: diastolic murmur, rubs, systolic murmur Pulses: PRESENT: normal dorsalis pedis pul, +2 pedal pulses bilateral Vascular exam: PRESENT: normal capillary refill GI/Abdominal exam: PRESENT: normal bowel sounds, soft. ABSENT: distended, guarding, mass, organolmegaly, rebound, tenderness Rectal exam: PRESENT: deferred Musculoskeletal exam: PRESENT: other - Lumbar spine: Tenderness palpation along the L1 vertebrae. Positive straight leg raise on the left negative straight leg raise on the right. Normal upgoing Babinski's. No sensory deficits. Plantar flexion/dorsiflexion/EHL 5/5. Weakness with hip flexion likely secondary to pain and exact weakness. No saddle anesthesia. Intact straight leg raise against resistance on the right lacks straight leg against resistance on the left. Bilateral upper extremes. Tenderness palpation throughout the cervical spine. Negative Osito's test. Negative Froment's. Wrist flexion, extension, intrinsics, evs attendant 5/5. Biceps 5/5 on the right 4+/5 on the left. Deltoid 5/5. No sensory deficits intact sharp versus light touch. Positive Spurling's test. Neurological exam: PRESENT: alert, awake, oriented to person, oriented to place , oriented to time, oriented to situation, CN II-XII grossly intact. ABSENT: motor sensory deficit Psychiatric exam: PRESENT: appropriate affect, normal mood. ABSENT: homicidal ideation, suicidal ideation Skin exam: PRESENT: dry, intact, warm. ABSENT: cyanosis, rash Results Impressions: Cervical Spine CT 08/28/16 10:40 IMPRESSION: Diffuse multilevel degenerative changes with multilevel foraminal narrowing Left-sided pleural effusions seen at the bottom edge of the field of view Status: Image reviewed by ne - Lumbosacral spine MRI from [facility] has been reviewed which demonstrates compression fracture of the L1 vertebrae specifically the superior endplate with mild retropulsion. Adequate canal diameter with no evidence of cord impingement, myelomalacia or cauda constrictor. There is some mild foraminal stenosis. Assessment & Plan - Diagnosis (1) Compression fracture of L1 lumbar vertebra Qualifiers: Encounter type: initial encounter Fracture type: closed Qualified Code(s): S32.010A - Wedge compression fracture of first lumbar vertebra, initial encounter for closed fracture Is this a current diagnosis for this admission?: YesPlan: I have reviewed patient's outside MRI which demonstrates a L1 compression fracture currently Dr. Bolton and colleagues are working the patient up for possible kyphoplasty. Although there is mild retropulsion I do not feel this is a contraindication to operative intervention I have explained to the patient prognosis of compression fractures and treatment options including bracing versus observation versus kyphoplasty. She will consider these options. (2) Cervical spine degeneration Qualifiers: Spinal osteoarthritis complication: with radiculopathy Qualified Code(s): M47.22 - Other spondylosis with radiculopathy, cervical region Is this a current diagnosis for this admission?: YesPlan: I have reviewed patient's CT scan which demonstrates degenerative changes at C4- C6 level. This may be contributing to her bilateral upper extremity weakness and discomfort. I would consider possible MRI but have deferred the decision of her cervical spine and upper extremity weakness to Dr. Bolton and colleagues if they feel further treatment is required.
[2016-09-01] MEDS: DEXAMETHASONE SOD PHOS INJ 10 MG/1 ML VIAL IV SCH (13:38)
--- NOTE | 2016-09-01 17:31 | PDOC PROGRESS REPORT ---
Subjective Progress Note for:: 09/01/16 Subjective:: Reason for visit: Follow-up of lumbar and cervical pain. Hospital course: Per H&P "AMGDIEL HENDRICKS is a 75 year old female history of esophageal cancer which was recently evaluated with biopsies and noted to have been in remission presents with complaints of neck pain. Patient states in fact that his generalized body pain, she notes that she was diagnosed with a compression fracture just yesterday in the lumbar region. pt notes the pain is not controlled with her oxycodone. pt denies any fevers or chills, denies any difficutly ambulating. pt notes it hurts to move because of her back but is able to move her legs with no neuro deficits Patient states she initially injured her back in July while pulling on a [place] tree The pain was tolerable but became unbearable in the last 3 weeks Patient has been more or less bedridden for the past 3 weeks Today she could not ambulate An MRI of the LS spine done today in an outpatient facility showed a compression fracture of L1 Was sent by Dr. Hamm for evaluation in the ER and subsequently admitted under hospitalist service for observation" Patient has subsequently been admitted and treated with analgesics with mild to minimal improvement in her overall condition, she's been evaluated by Dr. Bolton and Dr. troncoso and smiling understanding they are proceeding with kyphoplasty tomorrow in the hopes of alleviating some of her lower back discomfort. Subjective: She continues to report significant neck, shoulder, arm pain with any movement particularly when the nurses come to reposition her for physical therapy attempts to get her up and move her. She reports progressive weakness of her upper extremities over the last several months to the point that she is unable to walk with a walker without excessive ear exacerbating or pain, or pull herself up out of the bed with similar results. She describes the pain as waxing and waning, worsened with certain positions and movements as described above, sharp stabbing radiating pain down to her fingertips with associated numbness and tingling. In the lower back pain is likewise constant low grade dull aching pain nonradiating not alleviated by anything exacerbated by certain positions and movements and associated with generalized weakness. She denies fevers chills, paresthesias, headache, dizziness, difficulty swallowing, chest pain, palpitations, orthopnea, PND and dyspnea. ROS: per HPI plus a total of 10 systems reviewed, pertinent positives and negatives noted above, remaining systems negative. Physical Exam Vital Signs: Temp Pulse Resp BP Pulse Ox 98.8 F 100 16 121/54 L 94 09/01/16 12:10 09/01/16 12:10 09/01/16 12:10 09/01/16 12:10 09/01/16 12:10 Intake & Output 08/31/16 09/01/16 09/02/16 06:59 06:59 06:59 Intake Total 2165 1600 Output Total 1525 800 Balance 640 800 Weight 60.3 kg 60 kg Results Impressions: Cervical Spine CT 08/28/16 10:40 IMPRESSION: Diffuse multilevel degenerative changes with multilevel foraminal narrowing Left-sided pleural effusions seen at the bottom edge of the field of view Status: Imported from PACS - Reports reviewed Assessment & Plan - Diagnosis (1) Cervical spine degeneration Qualifiers: Spinal osteoarthritis complication: with radiculopathy Qualified Code(s): M47.22 - Other spondylosis with radiculopathy, cervical region Is this a current diagnosis for this admission?: YesPlan: Dr. Bolton in evaluating for possible trigger point injection. Continue current pain regimen and titrate to effect. (2) Compression fracture of L1 lumbar vertebra Qualifiers: Encounter type: initial encounter Fracture type: closed Qualified Code(s): S32.010A - Wedge compression fracture of first lumbar vertebra, initial encounter for closed fracture Is this a current diagnosis for this admission?: YesPlan: Anticipating kyphoplasty tomorrow. Otherwise continue current care. (3) Constipation Qualifiers: Constipation type: unspecified constipation type Qualified Code(s): K59.00 - Constipation, unspecified Is this a current diagnosis for this admission?: YesPlan: She reports 2 bowel movements this morning. Continue bowel regimen. (4) Dysuria Is this a current diagnosis for this admission?: YesPlan: With urine retention, likely secondary to opiate use. Aleman catheter remains in place. Patient is resistant to removal as movement to the restroom severely exacerbates her discomfort. She is hoping to keep in place until she fully recovers from her pain and surgery.. (5) Intractable low back pain Is this a current diagnosis for this admission?: YesPlan: As above (6) Unable to ambulate Is this a current diagnosis for this admission?: YesPlan: Continue physical therapy as the patient's condition will allow. [facility] - Time Time Spent with patient: 25-34 minutes Anticipated discharge: SNF, Acute Rehab Within: within 72 hours
[2016-09-01] MEDS: OXYCODONE HCL IR 5 MG TABLET PO PRN (20:07)
[2016-09-01] MEDS: ATORVASTATIN CALCIUM 10 MG TABLET PO SCH (21:42)
[2016-09-01] MEDS: CIPROFLOXACIN HCL 500 MG TABLET PO SCH (21:42)
[2016-09-01] MEDS: TACROLIMUS ANHYDROUS 1 MG CAPSULE PO SCH (22:10)
[2016-09-02] MEDS: DEXAMETHASONE SOD PHOS INJ 10 MG/1 ML VIAL IV SCH ×2 (01:59→12:04)
[2016-09-02] MEDS: ACYCLOVIR SODIUM 500 MG in NORMAL SALINE 100 ML IV SCH ×3 (05:05→21:14)
[2016-09-02] MEDS: HYDROMORPHONE HCL INJ/PF 2 MG/ML AMPULE IV PRN ×4 (05:35→23:29)
[2016-09-02] MEDS: AMLODIPINE BESYLATE 5 MG TABLET PO SCH (09:31)
[2016-09-02] MEDS: BISACODYL 5 MG TABEC PO SCH ×2 (09:31→18:21)
[2016-09-02] MEDS: CIPROFLOXACIN HCL 500 MG TABLET PO SCH (09:31)
[2016-09-02] MEDS: POLYETHYLENE GLYCOL 3350 POWDER 17 GM/1 PACKET PO SCH ×2 (09:47→18:22)
[2016-09-02] MEDS: TACROLIMUS ANHYDROUS 1 MG CAPSULE PO SCH ×2 (09:48→21:11)
[2016-09-02 10:36] LABS: APPEARANCE,URINE CLEAR; BILIRUBIN,URINE NEGATIVE (NEGATIVE); GLUCOSE, URINE NEGATIVE (NEGATIVE); KETONES,URINE NEGATIVE (NEGATIVE); LEUKOCYTE ESTERASE,URINE NEGATIVE (NEGATIVE); NITRITE,URINE NEGATIVE (NEGATIVE); PROTEIN,URINE NEGATIVE (NEGATIVE); URINE SPECIFIC GRAVITY 1.015; UROBILINOGEN,URINE NEGATIVE mg/dL (<2.0)
[2016-09-02] MEDS ORDERED: RINGERS SOLUTION,LACTATED 1,000 ML IV PRN (13:44)
[2016-09-02 13:59] LABS: PROTHROMBIN TIME 14.4 SEC (11.4-15.4)
[2016-09-02 14:25] LABS: HEMATOCRIT 36.6 % (36.0-47.0); HEMOGLOBIN 12.6 g/dL (12.0-15.5); HGB HCT DIFFERENCE 1.2; MEAN CORPUSCULAR HEMOGLOBIN 31.8 pg (27.0-33.4); MEAN CORPUSCULAR HGB CONC 34.5 g/dL (32.0-36.0); MEAN CORPUSCULAR VOLUME 92 fl (80-97); RED BLOOD COUNT 3.97 10^6/uL (3.72-5.28); RED CELL DISTRIBUTION WIDTH 13.5 % (11.5-14.0); WHITE BLOOD COUNT 6.9 10^3/uL (4.0-10.5)
[2016-09-02 15:12] LABS: BASOPHILS % (MANUAL) 0 % (0-2); EOSINOPHILS % (MANUAL) 0 % (0-6); LYMPHOCYTES % (MANUAL) 3 % (13-45); POLYCHROMASIA SLIGHT; TOTAL CELLS COUNTED 100; TOXIC GRANULATION 1+; TOXIC VACUOLATION PRESENT
--- NOTE | 2016-09-02 17:31 | PDOC PROGRESS REPORT ---
Subjective Progress Note for:: 09/02/16 Subjective:: Reason for visit: Follow-up of lumbar and cervical pain. Hospital course: Per H&P "MAGDIEL HENDRICKS is a 75 year old female history of esophageal cancer which was recently evaluated with biopsies and noted to have been in remission presents with complaints of neck pain. Patient states in fact that his generalized body pain, she notes that she was diagnosed with a compression fracture just yesterday in the lumbar region. pt notes the pain is not controlled with her oxycodone. pt denies any fevers or chills, denies any difficutly ambulating. pt notes it hurts to move because of her back but is able to move her legs with no neuro deficits Patient states she initially injured her back in July while pulling on a [place] tree The pain was tolerable but became unbearable in the last 3 weeks Patient has been more or less bedridden for the past 3 weeks Today she could not ambulate An MRI of the LS spine done today in an outpatient facility showed a compression fracture of L1 Was sent by Dr. Hamm for evaluation in the ER and subsequently admitted under hospitalist service for observation" Patient has subsequently been admitted and treated with analgesics with mild to minimal improvement in her overall condition, she's been evaluated by Dr. Bolton and Dr. troncoso and smiling understanding they are proceeding with kyphoplasty tomorrow in the hopes of alleviating some of her lower back discomfort. Subjective: She reports marked improvement after administration of Decadron yesterday. She has improved range of motion, less pain and improved overall mood and outlook. She denies chest pain, palpitations, fever, chills, nausea vomiting, diarrhea, constipation. She continues to report pain in her neck and lower back but only with extreme movements now and demonstrates by moving her arms above her head lifting her head off the pillow and lifting legs off the bed. ROS: per HPI plus a total of 10 systems reviewed, pertinent positives and negatives noted above, remaining systems negative. Physical Exam Vital Signs: Temp Pulse Resp BP Pulse Ox 98.1 F 89 18 99/71 L 93 09/02/16 15:59 09/02/16 15:59 09/02/16 15:59 09/02/16 15:59 09/02/16 15:59 Intake & Output 09/01/16 09/02/16 09/03/16 06:59 06:59 06:59 Intake Total 1600 750 Output Total 800 550 Balance 800 200 Weight 60 kg 58.2 kg EXAM GENERAL: NAD; well developed, well nourished; no obese; alert and oriented to person, place, time, situation HEENT: normocephalic, atraumatic; no conjunctival injection, no scleral icterus ; oral mucosa moist; RESPIRATORY: no accessory muscle use, no increased WOB, good air entry bilaterally; no wheezes, rales, rhonchi; no inspiratory crackles CARDIO: no JVD; RRR; no systolic murmur; no tachycardia GI: soft; nondistended; normal bowel sounds; no hepato spleno megaly; no rebound, rigidity, guarding VASCULAR: no carotid bruit; no abdominal bruit; no pallor; 2+ radial, DP pulse ; normal capillary refill MSK: Improved range of motion at the shoulders and hips and neck EXTREMITIES: no calf tender; no palpable cords in calf; no clubbing, cyanosis , pedal edema PSYCH: normal affect, normal mood SKIN: warm; moist; no petechiae; no telengectasias; no jaundice; no rash Results Laboratory Results: 09/02/16 13:47 09/02/16 09/02/16 09:50 13:47 WBC 6.9 RBC 3.97 Hgb 12.6 Hct 36.6 MCV 92 MCH 31.8 MCHC 34.5 RDW 13.5 Plt Count 302 Seg Neutrophils % Not Reportable Lymphocytes % Not Reportable Monocytes % Not Reportable Eosinophils % Not Reportable Basophils % Not Reportable Absolute Neutrophils Not Reportable Absolute Lymphocytes Not Reportable Absolute Monocytes Not Reportable Absolute Eosinophils Not Reportable Absolute Basophils Not Reportable Urine Color YELLOW Urine Appearance CLEAR Urine pH 6.0 Ur Specific [place] 1.015 Urine Protein NEGATIVE Urine Glucose (UA) NEGATIVE Urine Ketones NEGATIVE Urine Blood NEGATIVE Urine Nitrite NEGATIVE Ur Leukocyte Esterase NEGATIVE Urine WBC (Auto) 2 Urine RBC (Auto) 1 Labs reviewed. No worrisome trends. Impressions: Cervical Spine CT 08/28/16 10:40 IMPRESSION: Diffuse multilevel degenerative changes with multilevel foraminal narrowing Left-sided pleural effusions seen at the bottom edge of the field of view Status: Imported from PACS - Previous reports reviewed. Assessment & Plan - Diagnosis (1) Cervical spine degeneration Qualifiers: Spinal osteoarthritis complication: with radiculopathy Qualified Code(s): M47.22 - Other spondylosis with radiculopathy, cervical region Is this a current diagnosis for this admission?: YesPlan: Continue systemic steroids with Decadron and she has had a marked improvement. Dr. Bolton in evaluating for possible trigger point injection. Continue current pain regimen and titrate to effect. (2) Compression fracture of L1 lumbar vertebra Qualifiers: Encounter type: initial encounter Fracture type: closed Qualified Code(s): S32.010A - Wedge compression fracture of first lumbar vertebra, initial encounter for closed fracture Is this a current diagnosis for this admission?: YesPlan: Anticipating kyphoplasty . Otherwise continue current care. (3) Constipation Qualifiers: Constipation type: unspecified constipation type Qualified Code(s): K59.00 - Constipation, unspecified Is this a current diagnosis for this admission?: YesPlan: Resolved. Continue bowel regimen. (4) Dysuria Is this a current diagnosis for this admission?: YesPlan: With urine retention, likely secondary to opiate use. Aleman catheter remains in place. Patient is resistant to removal as movement to the restroom severely exacerbates her discomfort. She is hoping to keep in place until she fully recovers from her pain and surgery. Urine culture shows mixed normal [place], no dominant pathogen. Stop antibiotics. (5) Intractable low back pain Is this a current diagnosis for this admission?: YesPlan: As above. Continue physical therapy. (6) Unable to ambulate Is this a current diagnosis for this admission?: YesPlan: Continue physical therapy as the patient's condition will allow. 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 Continue IV acyclovir. This affects her oral intake will give 1 L of fluids today and continue to monitor her volume status. - Time Time Spent with patient: 25-34 minutes
[2016-09-02] MEDS: ATORVASTATIN CALCIUM 10 MG TABLET PO SCH (21:14)
[2016-09-03] MEDS: DEXAMETHASONE SOD PHOS INJ 10 MG/1 ML VIAL IV SCH (00:01)
[2016-09-03] MEDS: ACYCLOVIR SODIUM 500 MG in NORMAL SALINE 100 ML IV SCH (05:26)
[2016-09-03] MEDS ORDERED: LIDOCAINE 1% INJ-PF (10 MG/ML) 30 ML SDV ONE (09:27)
[2016-09-03] MEDS: AMLODIPINE BESYLATE 5 MG TABLET PO SCH (09:44)
[2016-09-03] MEDS: TACROLIMUS ANHYDROUS 1 MG CAPSULE PO SCH ×2 (09:45→21:25)
[2016-09-03] MEDS: BISACODYL 5 MG TABEC PO SCH ×2 (09:45→17:30)
[2016-09-03] MEDS: POLYETHYLENE GLYCOL 3350 POWDER 17 GM/1 PACKET PO SCH ×2 (09:45→17:30)
[2016-09-03] MEDS: OXYCODONE HCL IR 5 MG TABLET PO PRN ×2 (13:29→19:44)
--- NOTE | 2016-09-03 16:44 | PDOC PROGRESS REPORT ---
Subjective Progress Note for:: 09/03/16 Subjective:: Reason for visit: Follow-up of lumbar and cervical pain. Hospital course: Per H&P "MAGDIEL HENDRICKS is a 75 year old female history of esophageal cancer which was recently evaluated with biopsies and noted to have been in remission presents with complaints of neck pain. Patient states in fact that his generalized body pain, she notes that she was diagnosed with a compression fracture just yesterday in the lumbar region. pt notes the pain is not controlled with her oxycodone. pt denies any fevers or chills, denies any difficutly ambulating. pt notes it hurts to move because of her back but is able to move her legs with no neuro deficits Patient states she initially injured her back in July while pulling on a [place] tree The pain was tolerable but became unbearable in the last 3 weeks Patient has been more or less bedridden for the past 3 weeks Today she could not ambulate An MRI of the LS spine done today in an outpatient facility showed a compression fracture of L1 Was sent by Dr. Hamm for evaluation in the ER and subsequently admitted under hospitalist service for observation" Patient has subsequently been admitted and treated with analgesics with mild to minimal improvement in her overall condition, she's been evaluated by Dr. Bolton and Dr. troncoso and smiling understanding they are proceeding with kyphoplasty tomorrow in the hopes of alleviating some of her lower back discomfort. She reports marked improvement after administration of Decadron yesterday. She has improved range of motion, less pain and improved overall mood and outlook. She denies chest pain, palpitations, fever, chills, nausea vomiting, diarrhea, constipation. She continues to report pain in her neck and lower back but only with extreme movements now and demonstrates by moving her arms above her head lifting her head off the pillow and lifting legs off the bed. Subjective: Continues to improve in fact so much so that her kyphoplasty has been postponed. She is quite pleased with her improvement after the initiation of Decadron and would like to continue same for a period time with intermittent narcotics to assist with her but this patient in physical therapy; she seems enthusiastic about beginning physical therapy. She denies chest pain, palpitations, fever, chills. The catheter remains in place with clear yellow urine in the bag. She has moved her bowels several times now after initiation of bowel regimen. ROS: per HPI plus a total of 10 systems reviewed, pertinent positives and negatives noted above, remaining systems negative. Physical Exam Vital Signs: Temp Pulse Resp BP Pulse Ox 97.6 F 93 18 106/65 94 09/03/16 12:05 09/03/16 12:05 09/03/16 12:05 09/03/16 12:05 09/03/16 12:05 Intake & Output 09/02/16 09/03/16 09/04/16 06:59 06:59 06:59 Intake Total 750 2100 Output Total 550 900 Balance 200 1200 Weight 58.2 kg 58 kg EXAM GENERAL: NAD; well developed, well nourished; no obese; alert and oriented to person, place, time, situation HEENT: normocephalic, atraumatic; no conjunctival injection, no scleral icterus ; oral mucosa moist; RESPIRATORY: no accessory muscle use, no increased WOB, good air entry bilaterally; no wheezes, rales, rhonchi; no inspiratory crackles CARDIO: no JVD; RRR; no systolic murmur; no tachycardia GI: soft; nondistended; normal bowel sounds; no hepato spleno megaly; no rebound, rigidity, guarding VASCULAR: no carotid bruit; no abdominal bruit; no pallor; 2+ radial, DP pulse ; normal capillary refill MSK: Improved range of motion at the shoulders and hips and neck, reportedly up to the bedside commode with assistance EXTREMITIES: no calf tender; no palpable cords in calf; no clubbing, cyanosis , pedal edema PSYCH: normal affect, normal mood SKIN: warm; moist; no petechiae; no telengectasias; no jaundice; no rash Assessment & Plan - Diagnosis (1) Cervical spine degeneration Qualifiers: Spinal osteoarthritis complication: with radiculopathy Qualified Code(s): M47.22 - Other spondylosis with radiculopathy, cervical region Is this a current diagnosis for this admission?: YesPlan: Marked improvement. Continue systemic steroids with Decadron and changed to oral regimen. Dr. Bolton in evaluating for possible trigger point injection. Continue current pain regimen and titrate to effect. (2) Compression fracture of L1 lumbar vertebra Qualifiers: Encounter type: initial encounter Fracture type: closed Qualified Code(s): S32.010A - Wedge compression fracture of first lumbar vertebra, initial encounter for closed fracture Is this a current diagnosis for this admission?: YesPlan: Anticipated kyphoplasty now on hold. Otherwise continue current care and resume physical therapy. (3) Constipation Qualifiers: Constipation type: unspecified constipation type Qualified Code(s): K59.00 - Constipation, unspecified Is this a current diagnosis for this admission?: YesPlan: Resolved. Continue bowel regimen. (4) Dysuria Is this a current diagnosis for this admission?: YesPlan: With urine retention, likely secondary to opiate use. Aleman catheter remains in place but now she is more mobile would like it removed within the next 24 hours. Patient is resistant to removal as movement to the restroom continues to exacerbate her discomfort. She is hoping to keep in place until she fully recovers from her pain and surgery if necessary. Urine culture shows mixed normal [place], no dominant pathogen. Stopped antibiotics. (5) Intractable low back pain Is this a current diagnosis for this admission?: YesPlan: As above. Continue physical therapy. 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 Change to oral valacyclovir. This affects her oral intake will give 1 L of fluids today and continue to monitor her volume status. - Time Time Spent with patient: 25-34 minutes Anticipated discharge: Acute Rehab Within: within 48 hours
[2016-09-03] MEDS: DEXAMETHASONE 4 MG TABLET PO SCH ×2 (17:26→23:04)
[2016-09-03] MEDS: ATORVASTATIN CALCIUM 10 MG TABLET PO SCH (21:04)
[2016-09-03] MEDS: VALACYCLOVIR HCL 500 MG TABLET PO SCH (21:04)
[2016-09-04] MEDS: DEXAMETHASONE 4 MG TABLET PO SCH ×4 (06:16→23:25)
[2016-09-04] MEDS: VALACYCLOVIR HCL 500 MG TABLET PO SCH ×3 (06:16→23:25)
[2016-09-04] MEDS ORDERED: ACETAMINOPHEN 325 MG TABLET PO PRN (07:41)
[2016-09-04] MEDS: OXYCODONE HCL IR 5 MG TABLET PO PRN ×2 (08:52→18:20)
[2016-09-04] MEDS: AMLODIPINE BESYLATE 5 MG TABLET PO SCH (11:44)
[2016-09-04] MEDS: BISACODYL 5 MG TABEC PO SCH ×2 (11:45→18:19)
[2016-09-04] MEDS: POLYETHYLENE GLYCOL 3350 POWDER 17 GM/1 PACKET PO SCH ×2 (11:48→18:19)
[2016-09-04] MEDS: ENOXAPARIN SODIUM INJ 40 MG/0.4 ML DISP.SYRIN SUBCUT SCH (11:48)
[2016-09-04] MEDS: TACROLIMUS ANHYDROUS 1 MG CAPSULE PO SCH ×2 (11:48→23:25)
--- NOTE | 2016-09-04 14:56 | PDOC PROGRESS REPORT ---
Subjective Progress Note for:: 09/04/16 Physical Exam Vital Signs: Temp Pulse Resp BP Pulse Ox 97.7 F 78 17 124/71 96 09/04/16 11:41 09/04/16 11:41 09/04/16 11:41 09/04/16 11:41 09/04/16 11:41 Intake & Output 09/03/16 09/04/16 09/05/16 06:59 06:59 06:59 Intake Total 2100 468 980 Output Total 900 1160 500 Balance 1200 -692 480 Weight 58 kg 58 kg EXAM GENERAL: NAD; well developed, well nourished; no obese; alert and oriented to person, place, time, situation HEENT: normocephalic, atraumatic; no conjunctival injection, no scleral icterus ; oral mucosa moist; RESPIRATORY: no accessory muscle use, no increased WOB, good air entry bilaterally; no wheezes, rales, rhonchi; no inspiratory crackles CARDIO: no JVD; RRR; no systolic murmur; no tachycardia GI: soft; nondistended; normal bowel sounds; no hepato spleno megaly; no rebound, rigidity, guarding VASCULAR: no carotid bruit; no abdominal bruit; no pallor; 2+ radial, DP pulse ; normal capillary refill MSK: Again Improved range of motion at the shoulders and hips and neck, reportedly up to the bedside commode with assistance EXTREMITIES: no calf tender; no palpable cords in calf; no clubbing, cyanosis , pedal edema PSYCH: normal affect, normal mood SKIN: warm; moist; no petechiae; no telengectasias; no jaundice; no rash Results Laboratory Results: 09/02/16 13:47 Impressions: Cervical Spine CT 08/28/16 10:40 IMPRESSION: Diffuse multilevel degenerative changes with multilevel foraminal narrowing Left-sided pleural effusions seen at the bottom edge of the field of view Assessment & Plan - Diagnosis (1) Cervical spine degeneration Qualifiers: Spinal osteoarthritis complication: with radiculopathy Qualified Code(s): M47.22 - Other spondylosis with radiculopathy, cervical region Is this a current diagnosis for this admission?: YesPlan: Marked improvement. Continue systemic steroids with Decadron and changed to oral regimen. Dr. Bolton in evaluating for possible trigger point injection in outpatient follow-up. Pain is well controlled on current regimen. (2) Compression fracture of L1 lumbar vertebra Qualifiers: Encounter type: initial encounter Fracture type: closed Qualified Code(s): S32.010A - Wedge compression fracture of first lumbar vertebra, initial encounter for closed fracture Is this a current diagnosis for this admission?: YesPlan: Anticipated kyphoplasty now on hold. Otherwise continue current care and continue physical therapy. (3) Constipation Qualifiers: Constipation type: unspecified constipation type Qualified Code(s): K59.00 - Constipation, unspecified Is this a current diagnosis for this admission?: YesPlan: Resolved. Continue bowel regimen. (4) Dysuria Is this a current diagnosis for this admission?: YesPlan: With urine retention, likely secondary to opiate use. Discontinue Aleman catheter. Urine culture shows mixed normal [place], no dominant pathogen. Stopped antibiotics. (5) Intractable low back pain Is this a current diagnosis for this admission?: YesPlan: As above. Continue physical therapy. (6) Unable to ambulate Is this a current diagnosis for this admission?: YesPlan: Marked improvement. Continue physical therapy as the patient's condition will allow. She needs ongoing rehabilitation whether at home with home health or placement inpatient for rehabilitation as yet to be determined. (7) Esophagitis Is this a current diagnosis for this admission?: Yes - Time Time Spent with patient: 35 or more minutes - Plan Summary Plan Summary: Awaiting evaluation by physical therapy today to help determine disposition, whether she goes home with home health and physical therapy or needs inpatient rehabilitation placement and her personal preference is to go home with continued therapy at home. Remove Aleman and monitor for spontaneous micturition. Anticipate discharge in the next 24 hours.
[2016-09-04] MEDS: ATORVASTATIN CALCIUM 10 MG TABLET PO SCH (23:24)
[2016-09-05] MEDS: OXYCODONE HCL IR 5 MG TABLET PO PRN (02:34)
[2016-09-05] MEDS: DEXAMETHASONE 4 MG TABLET PO SCH ×2 (06:03→11:46)
[2016-09-05] MEDS: VALACYCLOVIR HCL 500 MG TABLET PO SCH (06:03)
[2016-09-05] MEDS: AMLODIPINE BESYLATE 5 MG TABLET PO SCH (10:21)
[2016-09-05] MEDS: ENOXAPARIN SODIUM INJ 40 MG/0.4 ML DISP.SYRIN SUBCUT SCH (10:24)
[2016-09-05] MEDS: BISACODYL 5 MG TABEC PO SCH (10:25)
[2016-09-05] MEDS: POLYETHYLENE GLYCOL 3350 POWDER 17 GM/1 PACKET PO SCH (10:25)
[2016-09-05] MEDS: TACROLIMUS ANHYDROUS 1 MG CAPSULE PO SCH (10:25)
[2016-09-05 13:05] VITALS: BP 100/63
--- NOTE | 2016-09-05 14:09 | PDOC DISCHARGE SUMMARY ---
General - Admit/Disc Date/PCP Admission Date/Primary Care Provider: 08/30/16 17:25 Discharge Date: 09/05/16 - Discharge Diagnosis (1) Cervical spine degeneration Is this a current diagnosis for this admission?: YesSummary: Marked improvement. Continue systemic steroids with Decadron and changed to oral regimen. Dr. Bolton in evaluating for possible trigger point injection in outpatient follow-up. Pain is well controlled on current regimen. (2) Compression fracture of L1 lumbar vertebra Is this a current diagnosis for this admission?: YesSummary: Anticipated kyphoplasty now on hold. Otherwise continue current care and continue physical therapy. (3) Constipation Is this a current diagnosis for this admission?: YesSummary: Resolved with bowel regimen. (4) Dysuria Is this a current diagnosis for this admission?: YesSummary: Resolved. Urine culture negative. Aleman catheter removed with successful spontaneous micturition prior to discharge. (5) Intractable low back pain Is this a current diagnosis for this admission?: YesSummary: Improved with steroids. As above (6) Unable to ambulate Is this a current diagnosis for this admission?: YesSummary: Marked improvement with initiation of steroids, we'll continue gradual two-week taper and arrangements made for home health with outpatient physical therapy. (7) Esophagitis Is this a current diagnosis for this admission?: YesSummary: Follow-up with primary care for further recommendations. Continue valacyclovir - Additional Information Resuscitation Status: Do Not Resuscitate Discharge Activity: Slowly Increase Activity Home Medications: Amlodipine/Atorvastatin [Amlodipine-Atorvast 5-10 mg] 1 each PO DAILY 08/28/16 Diazepam [Valium 5 mg Tablet] 5 mg PO HSP PRN 08/28/16 Ergocalciferol (Vitamin D2) [Vitamin D2] 50,000 unit PO VO 08/28/16 Levothyroxine Sodium [Synthroid 0.1 mg Tablet] 0.1 mg PO DAILY 08/28/16 Oxycodone HCl [Oxy-Ir 5 mg Tablet] 5 mg PO Q6HP PRN 08/28/16 Tacrolimus [Prograf] 1 mg PO Q12 08/28/16 Acetaminophen [Tylenol 325 mg Tablet] 650 mg PO Q4HP PRN tablet 09/05/16 Dexamethasone [Decadron 4 mg Tablet] 4 mg PO Q6 #40 tablet 09/05/16 Polyethylene Glycol 3350 [Miralax Powder 17 gm/Packet] 17 gm PO BID #30 powd.pack 09/05/16 Valacyclovir HCl [Valtrex 500 mg Tablet] 500 mg PO Q8 tablet 09/05/16 History of Present Illness Patient complains of: Back and neck pain with bilateral upper arm weakness History of Present Illness: MAGDIEL HENDRICKS is a 75 year old female history of esophageal cancer which was recently evaluated with biopsies and noted to have been in remission presents with complaints of neck pain. Patient states in fact that his generalized body pain, she notes that she was diagnosed with a compression fracture just yesterday in the lumbar region. pt notes the pain is not controlled with her oxycodone. pt denies any fevers or chills, denies any difficutly ambulating. pt notes it hurts to move because of her back but is able to move her legs with no neuro deficits Patient states she initially injured her back in July while pulling on a [place] tree The pain was tolerable but became unbearable in the last 3 weeks Patient has been more or less bedridden for the past 3 weeks Today she could not ambulate An MRI of the LS spine done today in an outpatient facility showed a compression fracture of L1 Was sent by Dr. Hamm for evaluation in the ER and subsequently admitted under hospitalist service for observation" Hospital Course Hospital Course: Patient has subsequently been admitted and treated with analgesics with mild to minimal improvement in her overall condition, she's been evaluated by Dr. Bolton and Dr. troncoso and smiling understanding they are proceeding with kyphoplasty tomorrow in the hopes of alleviating some of her lower back discomfort. She reports marked improvement after administration of Decadron yesterday. She has improved range of motion, less pain and improved overall mood and outlook. She denies chest pain, palpitations, fever, chills, nausea vomiting, diarrhea, constipation. She continues to report pain in her neck and lower back but only with extreme movements now and demonstrates by moving her arms above her head lifting her head off the pillow and lifting legs off the bed. Continues to improve in fact so much so that her kyphoplasty has been postponed. She is quite pleased with her improvement after the initiation of Decadron and would like to continue same for a period time with intermittent narcotics to assist with her but this patient in physical therapy; she seems enthusiastic about beginning physical therapy. She denies chest pain, palpitations, fever, chills. The catheter remains in place with clear yellow urine in the bag. She has moved her bowels several times now after initiation of bowel regimen. Physical Exam Vital Signs: Temp Pulse Resp BP Pulse Ox 97.7 F 89 16 100/63 95 09/05/16 13:02 09/05/16 13:02 09/05/16 13:02 09/05/16 13:02 09/05/16 13:02 Intake & Output 09/04/16 09/05/16 09/06/16 06:59 06:59 06:59 Intake Total 468 1280 Output Total 1160 2100 Balance -692 -820 Weight 58 kg 58 kg EXAM GENERAL: NAD; well developed, well nourished; no obese; alert and oriented to person, place, time, situation HEENT: normocephalic, atraumatic; no conjunctival injection, no scleral icterus ; oral mucosa moist; RESPIRATORY: no accessory muscle use, no increased WOB, good air entry bilaterally; no wheezes, rales, rhonchi; no inspiratory crackles CARDIO: no JVD; RRR; no systolic murmur; no tachycardia GI: soft; nondistended; normal bowel sounds; no hepato spleno megaly; no rebound, rigidity, guarding VASCULAR: no carotid bruit; no abdominal bruit; no pallor; 2+ radial, DP pulse ; normal capillary refill MSK: Improved range of motion at the shoulders and hips and neck, reportedly up to the bedside commode with minimal assistance; walking with physical therapy using a rolling walker without difficulty. EXTREMITIES: no calf tender; no palpable cords in calf; no clubbing, cyanosis , pedal edema PSYCH: normal affect, normal mood SKIN: warm; moist; no petechiae; no telengectasias; no jaundice; no rash Results Impressions: Cervical Spine CT 08/28/16 10:40 IMPRESSION: Diffuse multilevel degenerative changes with multilevel foraminal narrowing Left-sided pleural effusions seen at the bottom edge of the field of view Status: Imported from [facility] BEING DISCHARGED WITH ANY OF THE FOLLOWING DIAGNOSIS?: No VTE patient discharged on overlapping Therapy?: Yes Plan Discharge Plan: Discharge home on a long slow taper of Decadron, continue physical therapy as an outpatient. Follow up with Dr. Bolton for further recommendations. Follow -up with primary care provider in one week. Time Spent: Greater than 30 Minutes
== END 2016-09-05 17:30 | disposition home health service (06) | DRG 948 ==
LOC: ER 09:56 → UNDOADMOB 16:16 → EH 16:16 → 4S 18:40 → OBSVTOIN 08-30 17:25
PROVIDERS: ADMIT Internal Medicine; ATTEND Internal Medicine
DX: G89.11 Acute pain due to trauma (principal); S32.019A Unspecified fracture of first lumbar vertebra, initial encounter for closed fracture; Z94.4 Liver transplant status; M47.22 Other spondylosis with radiculopathy, cervical region; T40.605A Adverse effect of unspecified narcotics, initial encounter; K59.00 Constipation, unspecified; R30.0 Dysuria; E11.9 Type 2 diabetes mellitus without complications; R53.81 Other malaise; K20.8 Other esophagitis; B00.9 Herpesviral infection, unspecified; I10 Essential (primary) hypertension; Z66 Do not resuscitate; R33.9 Retention of urine, unspecified; E78.5 Hyperlipidemia, unspecified; E78.00 Pure hypercholesterolemia, unspecified; E03.9 Hypothyroidism, unspecified; Z88.0 Allergy status to penicillin; Z85.01 Personal history of malignant neoplasm of esophagus; Z79.899 Other long term (current) drug therapy; Z87.891 Personal history of nicotine dependence; Z92.21 Personal history of antineoplastic chemotherapy; Z92.3 Personal history of irradiation; Z79.52 Long term (current) use of systemic steroids
CPT/HCPCS: 36415; 72125; 80048; 80053; 81001; 85025; 85610; 87040; 87086; 93005; 93010; 96361; 96374; 96375; 96376; 99285; G0378; G8978-GP; G8979-GP; J0133; J0744; J1100; J1170; J1650; J2405; J3360; J3490; J7030; J7120; J7507

== ENCOUNTER 2017-12-14 06:22 | Day surgery (SDC) | payer MEDICARE, OTHER ==
[~2017-12-14 06:22] MED LIST: BUPIVACAINE HCL 0.75% INJ/PF (7.5 MG/1 ML) 10 ML SDV OD PRN; KETOROLAC TROMETHAMINE 0.45% 4 DROP/0.4 ML DROPERETTE OD PRN; LIDOCAINE 4% INJ/PF (40 MG/ML) 5 ML AMPUL OD PRN
[2017-12-14] MEDS: CYCLOPENTOLATE 0.2%/PHENYLEPHRINE 1% OPH SOLN 2 ML OD PRN ×3 (06:45→07:05)
[2017-12-14] MEDS: TROPICAMIDE 1% OPH SOLN 3 ML OD PRN ×3 (06:45→07:05)
[2017-12-14] MEDS: BESIFLOXACIN HCL 0.6% OPH SUSP 5 ML BOTTLE OD PRN ×4 (06:46→07:56)
[2017-12-14] MEDS: TETRACAINE HCL 0.5% OPH SOLN 0.6 ML DROPERETTE OD PRN ×2 (06:47→07:20)
[2017-12-14] MEDS ORDERED: MIDAZOLAM 2 MG/2 ML INJ ONE (07:05)
[2017-12-14] MEDS ORDERED: ONDANSETRON HCL INJ/PF 4 MG/2 ML SDV ONE (07:05)
[2017-12-14] MEDS ORDERED: FENTANYL CITRATE INJ/PF 100 MCG/2 ML AMPUL ONE (07:05)
[2017-12-14] MEDS ORDERED: EPINEPHRINE INJ/PF 1 MG/1 ML AMPULE ONE (07:08)
[2017-12-14] MEDS ORDERED: LIDOCAINE 1% INJ-PF (10 MG/ML) 30 ML SDV ONE (07:08)
[2017-12-14] MEDS ORDERED: CHONDR SU A NA/HYALUR INTRAOC KIT (SURGICARE) ONE (07:08)
--- NOTE | 2017-12-14 08:19 | [facility] OPERATIVE REPORT E ---
[facility] Operative Report NAME: MAGDIEL HENDRICKS AGE: 77Y DATE OF SURGERY: 12/14/2017 ROOM: PREOPERATIVE DIAGNOSIS: Cataract, right eye. POSTOPERATIVE DIAGNOSIS: Cataract, right eye. PROCEDURE PERFORMED: Phacoemulsification with posterior chamber intraocular lens, right eye. SURGEON: GRACE JOHNSON M.D. ANESTHESIA: Topical with MAC. INDICATIONS FOR SURGERY: Difficulty with driving at night. Best corrected visual acuity 20/60. DESCRIPTION OF PROCEDURE: The patient was brought to the operating room and placed on the operative table. Following tetracaine drops, topical anesthesia was administered. This consisted of instrument wipe pledgets soaked in a solution of 4% Xylocaine mixed with 0.75% Marcaine in a 1:2 ratio. A 2 x 1 cm pledget was placed in the superior fornix. A 1 x 1 cm pledget was placed in the inferior fornix. The eye was patched shut for 5 minutes. The patch was removed. The eye was sterilely prepped and draped in the usual manner. Lid speculum was placed in the eye. The pledgets were removed, 4-0 black silk sutures were placed around the superior and the inferior rectus muscles to be used as traction. A conjunctival peritomy was made at the 10 o'clock position. Hemostasis was obtained with bipolar cautery. A posterior limbal groove was created using a crescent knife and dissected anteriorly towards the cornea. A sharp point blade was used to create a paracentesis site at the 2 o'clock position. A 2.4 mm keratome was used to enter the anterior chamber through the groove. Viscoelastic was injected into the anterior chamber. An anterior capsulotomy was performed using Utrata forceps in a capsulorrhexis fashion. Hydrodissection and hydrodelineation were performed. Phacoemulsification was performed in [id number] technique. Total phaco time, 6.04 CDE. Following this, the I/A unit was used to remove residual cortex. Viscoelastic was injected into the capsular bag. Intraocular lens Model SN60WF, 16.5 diopters, serial number [id number] was placed in the capsular bag. The I/A unit was used to remove residual viscoelastic. The wound was seen to be watertight under high and low pressure, and no sutures were placed. The intraocular lens was well centered. The pressure was adjusted in the eye to normal pressure. The 4-0 black silk sutures and lid speculum were removed. The eye was shielded after Besivance drops were placed. The patient tolerated the procedure well and was sent to the recovery room in good condition. Note, 0.2 mL of 1.5% phenylephrine and 1% non-preserved lidocaine was injected in the eye following the incision. DICTATING PHYSICIAN: GRACE JOHNSON M.D. 5006M 11 Y#: [id number] ID: [id number] JOB#: [id number] ACCT: [id number] cc:GRACE JOHNSON M.D. >
--- NOTE | 2017-12-14 08:20 | [facility] DISCHARGE SUMMARY E ---
[facility] Discharge Summary NAME: MAGDIEL HENDRICKS AGE: 77Y ADMITTED: 12/14/2017 DISCHARGED: 12/14/2017 HOSPITAL COURSE: The patient is a 77-year-old lady, who underwent uneventful cataract extraction with intraocular lens implant, right eye, on 12/14/2017. She will be discharged to home. She was instructed to resume preoperative medications, to take Tylenol as needed for discomfort, to keep her eye shielded, to use Besivance, Durezol, and Ilevro at 3:00 p.m. and 8:00 p.m., and to follow up in my office in 1 day. DICTATING PHYSICIAN: GRACE JOHNSON M.D. 5006M [id number] Y#: [id number] ID: [id number] JOB#: [id number] ACCT: [id number] cc:GRACE JOHNSON M.D. >
== END 2017-12-14 08:45 | disposition home or self-care (01) ==
LOC: SC 06:22
PROVIDERS: ATTEND Ophthalmology
DX: H25.811 Combined forms of age-related cataract, right eye (principal); I10 Essential (primary) hypertension; E78.00 Pure hypercholesterolemia, unspecified; E03.9 Hypothyroidism, unspecified; Z87.891 Personal history of nicotine dependence; Z88.0 Allergy status to penicillin
CPT/HCPCS: 66984; V2632; J2250; J3490 ×4; A9270; J0171; J3010; J2405; 142

== ENCOUNTER 2018-01-25 06:45 | Day surgery (SDC) | payer MEDICARE, OTHER ==
[~2018-01-25 06:45] MED LIST changes: -BUPIVACAINE HCL 0.75% INJ/PF (7.5 MG/1 ML) 10 ML SDV OD PRN; +BUPIVACAINE HCL 0.75% INJ/PF (7.5 MG/1 ML) 10 ML SDV OS PRN; -KETOROLAC TROMETHAMINE 0.45% 4 DROP/0.4 ML DROPERETTE OD PRN; +KETOROLAC TROMETHAMINE 0.45% 4 DROP/0.4 ML DROPERETTE OS PRN; -LIDOCAINE 4% INJ/PF (40 MG/ML) 5 ML AMPUL OD PRN; +LIDOCAINE 4% INJ/PF (40 MG/ML) 5 ML AMPUL OS PRN
[2018-01-25] MEDS ORDERED: FENTANYL CITRATE INJ/PF 100 MCG/2 ML AMPUL ONE (06:59)
[2018-01-25] MEDS ORDERED: MIDAZOLAM 2 MG/2 ML INJ ONE ×2 (06:59→07:56)
[2018-01-25] MEDS: TROPICAMIDE 1% OPH SOLN 3 ML OS PRN ×3 (07:03→07:20)
[2018-01-25] MEDS: BESIFLOXACIN HCL 0.6% OPH SUSP 5 ML BOTTLE OS PRN ×3 (07:03→08:23)
[2018-01-25] MEDS: CYCLOPENTOLATE 0.2%/PHENYLEPHRINE 1% OPH SOLN 2 ML OS PRN ×3 (07:03→07:20)
[2018-01-25] MEDS: TETRACAINE HCL 0.5% OPH SOLN 0.6 ML DROPERETTE OS PRN ×2 (07:03→07:20)
[2018-01-25] MEDS ORDERED: EPINEPHRINE INJ/PF 1 MG/1 ML AMPULE ONE (07:07)
[2018-01-25] MEDS ORDERED: CHONDR SU A NA/HYALUR INTRAOC KIT (SURGICARE) ONE (07:07)
[2018-01-25] MEDS ORDERED: LIDOCAINE 1% INJ-PF (10 MG/ML) 30 ML SDV ONE (07:07)
--- NOTE | 2018-01-25 08:35 | [facility] OPERATIVE REPORT E ---
[facility] Operative Report NAME: MAGDIEL HENDRICKS AGE: 77Y DATE OF SURGERY: 01/25/2018 ROOM: PREOPERATIVE DIAGNOSIS: Cataract, left eye. POSTOPERATIVE DIAGNOSIS: Cataract, left eye. PROCEDURE PERFORMED: Phacoemulsification with posterior chamber intraocular lens, left eye. SURGEON: GRACE JOHNSON M.D. ANESTHESIA: Topical with MAC. INDICATIONS FOR SURGERY: Difficulty with glare with night driving. Best corrected vision acuity 20/50. PROCEDURE: The patient was brought to the operating room and placed on the operative table. Following tetracaine drops, topical anesthesia was administered. This consisted of instrument wipe pledgets soaked in a solution of 4% Xylocaine mixed with 0.75% Marcaine in a 1:2 ratio. A 2 x 1 cm pledget was placed in the superior fornix. A 1 x 1 cm pledget was placed in the inferior fornix. The eye was patched shut for 5 minutes. The patch was removed. The eye was sterilely prepped and draped in the usual manner. Lid speculum was placed in the eye. The pledgets were removed. 4-0 black silk sutures were placed around the superior and the inferior rectus muscles to be used as traction. A conjunctival peritomy was made at the 10 o'clock position. Hemostasis was obtained with bipolar cautery. A posterior limbal groove was created using a crescent knife and dissected anteriorly towards the cornea. A sharp point blade was used to create a paracentesis site at the 2 o'clock position. A 2.4 mm keratome was used to enter the anterior chamber through the groove. Viscoelastic was injected into the anterior chamber. An anterior capsulotomy was performed using Utrata forceps in a capsulorrhexis fashion. Hydrodissection and hydrodelineation were performed. Phacoemulsification was performed in [id number]-[id number] technique. A total of 48 seconds phaco time was used. Following this, the I/A unit was used to remove residual cortex. Viscoelastic was injected into the capsular bag. Intraocular lens model SN60WF, 18.5 diopters, serial number [id number] was placed in the capsular bag. The I/A unit was used to remove residual viscoelastic. The wound was seen to be watertight under high and low pressure, and no sutures were placed. The intraocular lens was well centered. The pressure was adjusted in the eye to normal pressure. The 4-0 black silk sutures and lid speculum were removed. The eye was shielded after Besivance drops were placed. The patient tolerated the procedure well and was sent to the recovery room in good condition. DICTATING PHYSICIAN: GRACE JOHNSON M.D. 5006M [id number] PHY#: [id number] ID: [id number] JOB#: [id number] ACCT: [id number] cc:GRACE JOHNSON M.D. >
--- NOTE | 2018-01-25 08:35 | [facility] DISCHARGE SUMMARY E ---
[facility] Discharge Summary NAME: MAGDIEL HENDRICKS AGE: 77Y ADMITTED: 01/25/2018 DISCHARGED: 01/25/2018 FINAL DIAGNOSIS: Cataract, left eye. HOSPITAL COURSE: The patient is a 77-year-old lady who underwent uneventful cataract extraction with intraocular lens implant, left eye, on 01/25/2018. She will be discharged to home. She was instructed to resume preoperative medications; to take Tylenol as needed for discomfort; to keep her eye shielded; to use Durezol, Ilevro and Besivance at 3 p.m. and 8 p.m.; and to follow up in my office in 1 day. DICTATING PHYSICIAN: GRACE JOHNSON M.D. 5006M 32 Y#: [id number] ID: [id number] JOB#: [id number] ACCT: [id number] cc:GRACE JOHNSON M.D. >
== END 2018-01-25 09:07 | disposition home or self-care (01) ==
LOC: SC 06:45
PROVIDERS: ATTEND Ophthalmology
DX: H25.812 Combined forms of age-related cataract, left eye (principal); Z96.1 Presence of intraocular lens; H43.811 Vitreous degeneration, right eye; I10 Essential (primary) hypertension; E07.9 Disorder of thyroid, unspecified; Z87.891 Personal history of nicotine dependence; Z79.899 Other long term (current) drug therapy; Z88.0 Allergy status to penicillin; Z85.01 Personal history of malignant neoplasm of esophagus
CPT/HCPCS: 66984; V2632; J2250; J3490 ×4; A9270; J0171; 142; J3010